=== PATIENT | male | born 1970 | race Caucasian/White ===

== ENCOUNTER 2020-09-16 23:16 | Observation (INO) | payer OTHER, SELFPAY ==
[2020-09-16 23:32] VITALS: BP 191/110; PULSE 71; RESP 22; TEMP 36.9; O2SAT 98; BMI 58.4
[2020-09-17] VITALS (16 sets, daily range): BP systolic 131–216; BP diastolic 88–118; PULSE 67–112; RESP 11–18; TEMP 36.7–37.3; O2SAT 94–98
--- NOTE | 2020-09-17 00:35 | CTR_ITS ---
PROCEDURE INFORMATION: Exam: CT Abdomen And Pelvis With Contrast Exam date and time: 09/17/2020 12:39 AM Age: 50 years old Clinical indication: Abdominal pain; Localized; Right; Patient HX: RT sided abd pain. History of diverticulitis. ; Additional info: Pain, HX of diverticulitis, symptoms more consistent with TECHNIQUE: Imaging protocol: Computed tomography of the abdomen and pelvis with contrast. Radiation optimization: All CT scans at this facility use at least one of these dose optimization techniques: automated exposure control; mA and/or kV adjustment per patient size (includes targeted exams where dose is matched to clinical indication); or iterative reconstruction. Contrast material: OMNI 300; Contrast volume: 95 ml; Contrast route: INTRAVENOUS (IV); COMPARISON: CT abdomen pelvis w con* [id number] 10/07/2015 12:58 PM RADIATION DOSE METRICS: Total DLP (mGy-cm): 1804.42 FINDINGS: Liver: Normal. No mass. Gallbladder and bile ducts: There is a distended gallbladder with wall thickening and stranding of the surrounding fat, in association with fat density calculi in the gallbladder neck, consistent with acute cholecystitis. Sludge is seen within the gallbladder. Pancreas: Normal. No ductal dilation. Spleen: Normal. No splenomegaly. Adrenal glands: Normal. No mass. Kidneys and ureters: Symmetric enhancement of the kidneys. There is 2 new incompletely characterized hypodense masses in the right kidney, measuring 1.8 cm and 1.7 cm. Unchanged 1.0 cm hypodense focus in the left upper kidney, which may represent a cyst. No hydronephrosis or nephrolithiasis. Stomach and bowel: There is diverticulosis without evidence of diverticulitis. Appendix: No evidence of appendicitis. Intraperitoneal space: Unremarkable. No free air. No significant fluid collection. Vasculature: Mild diffuse atherosclerotic disease is present. Lymph nodes: Unremarkable. No enlarged lymph nodes. Urinary bladder: Unremarkable as visualized. Reproductive: Unremarkable as visualized. Bones/joints: Mild levocurvature of the lumbar spine and multilevel degenerative changes seen. Degenerative changes of the spine seen. Soft tissues: Unremarkable. Other findings: Tiny calcified granulomas are seen in both lower lobes. . CT/CT abdomen pelvis w con* [id number] IMPRESSION: Imaging findings of acute calculus cholecystitis. COMMENTS: Consistent with the [employer]'s Incidental Findings Committee white paper (J Am Ruben Radiol 2018): Any incidental renal lesion less than 1 cm or classified as too small to characterize, or any incidental cystic renal lesion characterized as simple-appearing, is likely benign. No follow-up imaging is recommended for these lesions per consensus recommendations based on imaging criteria. Radiation Dose CTDIVOL = (mGy): DLP = 1804.42 (mGy-cm)
[2020-09-17 00:42] LABS: Basophils # 0.1 10^3/uL (0.0-0.1); Basophils % 0.4 %; Eosinophils % 0.1 %; Hematocrit 49.1 % (42.0-52.0); Hemoglobin 17.1 g/dL (11.7-16.6); Lymphocytes # 1.2 10^3/uL (0.8-4.8); Lymphocytes % 9.9 %; Mean Corpuscular HGB Conc 34.8 g/dL (30.0-36.0); Mean Corpuscular Hemoglobin 30.9 pg (28.0-34.0); Mean Corpuscular Volume 88.8 fL (80-94); Mean Platelet Volume 9.5 fL (7.4-10.4); Monocytes # 0.6 10^3/uL (0.2-0.9); Neutrophils # 10.36 10^3/uL (1.8-7.7); Neutrophils % 84.2 %; Nucleated Red Blood Cells % 0 %; Platelet Count 210 10^3/cmm (130-400); Red Blood Count 5.53 10^6/uL (4.1-5.3); Red Cell Distribution Width 12.9 % (12.1-15.1); White Blood Count 12.3 10^3/uL (4.0-10.0)
--- NOTE | 2020-09-17 00:43 | ED_ITS ---
HPI - Abdominal Pain General: Chief Complaint: Abdominal Pain Stated Complaint: R Lower side pain Time Seen by Provider: 09/17/20 00:21 Source: patient History of Present Illness: HPI narrative: Patient is a 50-year-old male seen for right-sided abdominal pain. He states that the pain started yesterday has been getting worse ever since. The pain came on suddenly. He describes it as 9 of 10, sharp, constant, not necessarily worse with motion or palpation, however he states this is how it felt the last 4 times he had diverticulitis. He states that he took a single dose of oral antibiotics prior to arrival in the emergency department as he suspected this was diverticulitis again. He states that the pain typically starts on the right side and then crosses over his abdomen to the left side. He admits nausea but no vomiting. He denies fever, dysuria, frequency, hematuria, diarrhea, constipation, and has no other acute complaints. He did not take his lisinopril today, contributing to his hypertension. Review of Systems General: Reports: 10 or more systems reviewed and unremarkable except in HPI and below PFSH ED PFSH: Medical History Dyspnea on exertion Hypercholesterolemia Hypertension Obstructive sleep apnea Surgical History H/O colonoscopy Family History Other Cancer Hypertension Stroke Social History Smoking and tobacco status: current every day smoker smokeless tobacco Alcohol intake: current Alcohol intake frequency: holidays/special occasions only Substance/Drug Use: never Household members: spouse Housing: House Physical Exam Const: COMMON NORMALS: no acute distress, patient oriented x3 and alert HENMT: COMMON NORMALS: normocephalic and atraumatic HEAD & SCALP: normocephalic and atraumatic Eye: COMMON NORMALS: Equal, round and reactive pupils present, EOMs intact bilaterally and no scleral icterus PUPIL: Yes Equal, round and reactive pupils present Resp: COMMON NORMALS: normal respiratory effort and No retractions Cardio: COMMON NORMALS: regular rate, regular rhythm and No murmurs present (Cardio) RATE: regular rate RHYTHM: regular rhythm GI: COMMON NORMALS: Soft to palpation, non-tender, no masses and no bruits INSPECTION: No abdominal wall ecchymosis AUSCULTATION: Yes normoactive bowel sounds PALPATION: Yes Soft to palpation PERCUSSION: normal to percussion OTHER: Abdomen is soft and nonperitoneal and protuberant. I am not able to elicit increased pain with deep palpation of the abdominal wall. Neuro: COMMON NORMALS: patient oriented x3 SENSORIUM/ORIENTATION: Yes alert Skin: COMMON NORMALS: no rashes or lesions noted GENERAL SKIN EXAM: no rashes or lesions noted Course Vital Signs: Vital signs: Vital Signs Temperature 98.5 F 09/16/20 23:32 Pulse Rate 84 09/17/20 03:03 Respiratory Rate 17 09/17/20 03:03 Blood Pressure 157/102 09/17/20 03:03 Pulse Oximetry 97 09/17/20 03:03 MDM - Abdominal Pain MDM Narrative: Medical decision making narrative: Patient remained hemodynamically stable throughout ED course. Pain was well controlled with Dilaudid and nausea was controlled with Zofran. CT was concerning for possible acute cholecystitis and ultrasound of the right upper quadrant confirms the diagnosis. I spoke with general surgery who advises antibiotics and admission to the hospital service for surgical consultation. Patient agrees to the plan will be taken upstairs in stable and improved condition. Lab Data: Labs: Lab Results 09/17/20 09/17/20 09/17/20 Range/Units 00:24 00:24 00:24 WBC 12.3 H (4.0-10.0) 10^3/ uL RBC 5.53 H (4.1-5.3) 10^6/u L Hgb 17.1 H (11.7-16.6) g/dL Hct 49.1 (42.0-52.0) % MCV 88.8 (80-94) fL MCH 30.9 (28.0-34.0) pg MCHC 34.8 (30.0-36.0) g/dL RDW 12.9 (12.1-15.1) % Plt Count 210 (130-400) 10^3/c mm MPV 9.5 (7.4-10.4) fL Neut % (Auto) 84.2 % Lymph % (Auto) 9.9 % [place] % (Auto) 5.0 % Eos % (Auto) 0.1 % Baso % (Auto) 0.4 % Neut # (Auto) 10.36 H (1.8-7.7) 10^3/u L Lymph # (Auto) 1.2 (0.8-4.8) 10^3/u L [place] # (Auto) 0.6 (0.2-0.9) 10^3/u L Eos # (Auto) 0.0 (0.0-0.8) 10^3/u L Baso # (Auto) 0.1 (0.0-0.1) 10^3/u L Nucleated RBC % (a uto) 0 % Nucleated RBCs # 0.0 /100WBC ESR 23 H (0-10) mm/hr Sodium 131 L (136-145) mmol/L Potassium 4.3 (3.5-5.1) mmol/L Chloride 96 L (98-107) mmol/L Carbon Dioxide 25 (22-29) mmol/L Anion Gap 14.3 (5-19) BUN 11 (6-20) mg/dL Creatinine 0.9 (0.7-1.2) mg/dL GFR Calculation 89.0 L (90-130) mL/min Glucose 145 H (65-115) mg/dL Calculated Osmolal ity 274 L (285-295) mOsm/k g Calcium 8.5 (8.5-10.5) mg/dL Total Bilirubin 1.3 H (0.15-1.2) mg/dL AST 23 (0-40) U/L ALT 36 (0-41) U/L Alkaline Phosphata se 91 (40-130) IU/L C-Reactive Protein 51.7 H (0.0-4.9) mg/L Total Protein 7.3 (6.6-8.7) g/dL Albumin 4.1 (3.5-5.2) g/dL Globulin 3.2 (1.3-4.6) g/dL Lipase 33 (13-60) U/L Imaging Data ^: Other Imaging: Radiologist's impression: FINDINGS: Liver: Liver is diffusely increased in echogenicity, most commonly seen in hepatic steatosis, though other forms of parenchymal liver disease could have a similar appearance. This limits evaluation for subtle isoechoic masses but no masses are seen. Gallbladder: Distended gallbladder containing gallstones, in association with wall thickening and trace pericholecystic fluid. Positive sonographic Worley's sign. Common bile duct: Normal. No stones. No dilation. Pancreas: Visualized pancreas is unremarkable. Right kidney: Normal. No mass. No hydronephrosis. Aorta: Unremarkable. CT Abd/Pel: Radiologist's impression: IMPRESSION: 1. Imaging findings of acute calculus cholecystitis. 2. New incompletely characterized right renal lesions. Further evaluation with contrast enhanced abdomen MRI in a non emergent basis is recommended. Discharge Plan Discharge Admit Provider: Joselito Childress Coding Level of Care Code ED Precision Lens Polisher for Chg Fwd Exam Detailed
[2020-09-17 00:53] LABS: Alanine Aminotransferase 36 U/L (0-41); Albumin Level 4.1 g/dL (3.5-5.2); Alkaline Phosphatase 91 IU/L (40-130); Anion Gap 14.3 (5-19); Aspartate Amino Transferase 23 U/L (0-40); Blood Urea Nitrogen 11 mg/dL (6-20); C Reactive Protein 51.7 mg/L (0.0-4.9); Calcium 8.5 mg/dL (8.5-10.5); Carbon Dioxide 25 mmol/L (22-29); Chloride 96 mmol/L (98-107); Globulin 3.2 g/dL (1.3-4.6); Glucose 145 mg/dL (65-115); Lipase 33 U/L (13-60); Osmolality Calculated 274 mOsm/kg (285-295); Potassium 4.3 mmol/L (3.5-5.1); Sodium 131 mmol/L (136-145); Total Bilirubin 1.3 mg/dL (0.15-1.2); Total Protein 7.3 g/dL (6.6-8.7)
[2020-09-17] MEDS: HYDROmorphone 1 mg/mL INJ 1 mL IVP ×5 (00:59→20:11)
[2020-09-17] MEDS: ondansetron 2 mg/ML SDV 2 mL 4 MG IVP ×2 (01:01→17:34)
[2020-09-17 01:21] LABS: Erythrocyte Sedimentation Rate 23 mm/hr (0-10)
[2020-09-17] MEDS: iohexol 300 mg/mL 100 mL Btl IV (01:21)
--- NOTE | 2020-09-17 02:36 | USR_ITS ---
PROCEDURE INFORMATION: Exam: US Abdomen, Limited; Right Upper Quadrant Exam date and time: 09/17/2020 2:37 AM Age: 50 years old Clinical indication: Abdominal pain; Acute; TECHNIQUE: Imaging protocol: US abdomen. Real time ultrasound with image documentation. Limited exam focused on the right upper quadrant. COMPARISON: CT abdomen pelvis w con* [id number] 09/17/2020 1:18 AM FINDINGS: Liver: Liver is diffusely increased in echogenicity, most commonly seen in hepatic steatosis, though other forms of parenchymal liver disease could have a similar appearance. This limits evaluation for subtle isoechoic masses but no masses are seen. Gallbladder: Distended gallbladder containing gallstones, in association with wall thickening and trace pericholecystic fluid. Positive sonographic Worley's sign. Common bile duct: Normal. No stones. No dilation. Pancreas: Visualized pancreas is unremarkable. Right kidney: Normal. No mass. No hydronephrosis. Aorta: Unremarkable. US/US gall bladder [id number] IMPRESSION: 1. Imaging findings of acute calculus cholecystitis. 2. Hyperechoic liver, which can be seen with fatty infiltration or hepatocellular disease.
--- NOTE | 2020-09-17 02:58 | P.HP_ITS ---
Providers/Chief Complaint Primary Care Provider: Cameron Campbell MD Chief Complaint: R Lower side pain History of Present Illness Lee Crawford is a 50 year old male who does not have significant past medical history presented today with chief complaint of abdominal pain and dry heaves. Patient is stating that his symptoms started on Tuesday after he ate a leftover hotdog from the [employer] over the weekend. His symptoms started with abdominal pain nausea and vomiting followed by dry heaves, his pain has been worsening over last 48 hours which prompted him to come to the hospital for evaluation. Temperature at home 99.9 Fahrenheit. 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 No cough, chest pain, shortness of breath, change in bowel movement or dysuria. Diagnostics in the ER revealed mild leukocytosis, acute cholecystitis with gallstone at the neck of the bladder however no obstruction, alkaline phosphatase normal, no change in liver enzymes, ESR 23 CRP 51, lipase normal, ultrasound consistent with acute calculus cholecystitis Review of Systems Const: Reports: fever(s) and chills Eyes: Denies: change in vision ENMT: Denies: throat pain Card: Denies: chest pain Resp: Denies: dyspnea GI: Reports: abdominal pain, nausea and vomiting : Denies: flank pain Musc: Denies: neck pain Skin/Breast: Denies: rash Neuro: Denies: headache(s) Psych: Denies: anxiety Endo: Denies: polyuria Yahir/Lymph: Denies: easy bruising All/Imm: Denies: urticaria Medications/Allergies Home Medications Medication Instructions Recorded Confirmed Last Taken Type lisinopril 20 mg tablet 20 mg PO DAILY 03/24/20 03/24/20 Unknown History Allergies Allergy/AdvReac Type Severity Reaction Status Date / Time acetaminophen [From Percocet] Allergy Unknown Unknown Verified 03/24/20 09:23 oxycodone [From Percocet] Allergy Unknown Unknown Verified 03/24/20 09:23 propoxyphene Allergy Unknown Unknown Verified 03/24/20 09:23 [From Darvocet-N] tramadol Allergy Unknown Unknown Verified 03/24/20 09:23 PFSH Acute PFSH: Medical History Dyspnea on exertion Hypercholesterolemia Hypertension Obstructive sleep apnea Surgical History (Updated 09/17/20 @ 03:43 by Joselito Childress MD) H/O colonoscopy Removal of 6 precancerous polyps Family History Other Cancer Hypertension Stroke Social History Smoking and tobacco status: current every day smoker smokeless tobacco Alcohol intake: current Alcohol intake frequency: holidays/special occasions only Substance/Drug Use: never Household members: spouse Housing: House Vitals/I&O/Wt Last Vital Signs Temp 98.5 F 09/16/20 23:32 Pulse 67 09/17/20 02:00 Resp 17 09/17/20 02:00 BP 172/91 09/17/20 02:00 Pulse Ox 94 09/17/20 02:00 Weight last 48 hrs Weight 164.2 kg Physical Exam Narrative: EXAM NARRATIVE: Middle-age male, morbidly obese Worsening comfortably in his bed Worley's sign positive Abdomen central obesity, no guarding or rigidity no signs of peritonitis S1, S2 no murmur or signs of heart failure No audible stridor or wheezing EOMI, PERRLA No neurological deficit Awake alert oriented x3 GCS 15 Appropriate mood and affect Cooperative and pleasant during my evaluation Data : 09/17/20 00:24 09/17/20 00:24 A&P Assessment and plan (1) Acute cholecystitis: Status: Acute Additional A&P Information Acute calculus cholecystitis No choledocholithiasis Normal liver enzymes and alkaline phosphatase High white count however no sepsis We will keep him n.p.o., start him on Zosyn, hold lisinopril in case he goes for intervention in the morning considering acute calculus cholecystitis, general surgery consulted Dilaudid for analgesia Essential hypertension I would use amlodipine and hold lisinopril for now DVT prophylaxis SCDs in case he goes for intervention in the morning N.p.o. Full code Attestations Medical Necessity Statement*: Anticipating stay in the hospital cross more than 2 midnights for management of acute cholecystitis Time Spent in Patient Care: (>than 50% of time spent in counselling and/or direct pt care on unit) . 40mins Coding Level of Care Code Acute Woven Paper Hat Mender for George Fwd Diagnoses Acute cholecystitis K81.0
[2020-09-17] MEDS: piperacillin-tazobactam 3.375 GM in sodium chloride 0.9% (plus) 50 ML IV ×3 (03:24→17:27)
[2020-09-17 04:20] LABS: Basophils % 0.2 %; Eosinophils % 0.1 %; Hemoglobin 16.9 g/dL (11.7-16.6); Lymphocytes % 8.3 %; Mean Corpuscular HGB Conc 33.8 g/dL (30.0-36.0); Mean Corpuscular Hemoglobin 31.1 pg (28.0-34.0); Mean Corpuscular Volume 91.9 fL (80-94); Mean Platelet Volume 9.6 fL (7.4-10.4); Monocytes # 0.7 10^3/uL (0.2-0.9); Monocytes % 5.8 %; Neutrophils # 10.48 10^3/uL (1.8-7.7); Neutrophils % 85.3 %; Nucleated Red Blood Cells % 0 %; Platelet Count 192 10^3/cmm (130-400); Red Blood Count 5.44 10^6/uL (4.1-5.3); White Blood Count 12.3 10^3/uL (4.0-10.0)
[2020-09-17 04:24] LABS: SARS Covid-2 Antigen Negative (Negative)
[2020-09-17 04:33] LABS: Alanine Aminotransferase 32 U/L (0-41); Albumin Level 3.7 g/dL (3.5-5.2); Alkaline Phosphatase 86 IU/L (40-130); Anion Gap 14.9 (5-19); Aspartate Amino Transferase 20 U/L (0-40); Blood Urea Nitrogen 11 mg/dL (6-20); Calcium 8.2 mg/dL (8.5-10.5); Carbon Dioxide 22 mmol/L (22-29); Chloride 97 mmol/L (98-107); Globulin 3.4 g/dL (1.3-4.6); Glomerular Filtration Rate 118.9 mL/min (90-130); Glucose 155 mg/dL (65-115); Osmolality Calculated 273 mOsm/kg (285-295); Potassium 3.9 mmol/L (3.5-5.1); Sodium 130 mmol/L (136-145); Total Bilirubin 1.4 mg/dL (0.15-1.2); Total Protein 7.1 g/dL (6.6-8.7)
--- NOTE | 2020-09-17 06:46 | PM.CONSULT ---
Providers/Reason For Consult Consulting Physican/Specialty*: Xavier Mayorga MD Reason for Consult*: Acute cholecystitis Requesting Physcian: Dr. Millard Attending Physician: Joselito Childress MD Primary Care Provider: Cameron Campbell MD History of Present Illness History of Present Illness Chief Complaint: My side hurts History of present illness: Lee Crawford is a 50 year old male morbidly obese with a current weight 362 pounds and a BMI 58.4 class III obesity. 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 Presents to the emergency department with worsening abdominal pain following a barbecue last Tuesday, pain started on the right side and got worse associated with nausea and vomiting and patient was further evaluated emergency department was found to have leukocytosis of 12.3 and normal LFTs except for slight elevation of total bilirubin 1.3. Patient never had episodes of gallbladder problems before. Patient undergone imaging studies and showed CT scan of the abdomen and pelvis Liver: Normal. No mass. Gallbladder and bile ducts: There is a distended gallbladder with wall thickening and stranding of the surrounding fat, in association with fat density calculi in the gallbladder neck, consistent with acute cholecystitis. Sludge is seen within the gallbladder. Followed by an ultrasound of the liver and gallbladder that showed Liver: Liver is diffusely increased in echogenicity, most commonly seen in hepatic steatosis, though other forms of parenchymal liver disease could have a similar appearance. This limits evaluation for subtle isoechoic masses but no masses are seen. Gallbladder: Distended gallbladder containing gallstones, in association with wall thickening and trace pericholecystic fluid. Positive sonographic Worley's sign. Common bile duct: Normal. No stones. No dilation. Pancreas: Visualized pancreas is unremarkable. Right kidney: Normal. No mass. No hydronephrosis. Aorta: Unremarkable. US/US gall bladder [id number] IMPRESSION: 1. Imaging findings of acute calculus cholecystitis. 2. Hyperechoic liver, which can be seen with fatty infiltration or hepatocellular disease. General surgery was consulted for further evaluation and potential management Review of Systems General: Reports: 10 or more systems reviewed and unremarkable except in HPI and below Meds/Allergies Home Medications and Allergies Home Medications Medication Instructions Recorded Confirmed Last Taken Type lisinopril 20 mg tablet 20 mg PO DAILY 11/09/17/20 09/13/20 08:00 History Allergies Allergy/AdvReac Type Severity Reaction Status Date / Time acetaminophen [From Percocet] Allergy Unknown Unknown Verified 09/17/20 06:47 oxycodone [From Percocet] Allergy Unknown Unknown Verified 09/17/20 06:47 propoxyphene Allergy Unknown Unknown Verified 09/17/20 06:47 [From Darvocet-N] tramadol Allergy Unknown Unknown Verified 09/17/20 06:47 PFSH Acute PFSH: Medical History (Updated 09/17/20 @ 10:58 by Ike Greco MD) Dyspnea on exertion Hypercholesterolemia Hypertension Obstructive sleep apnea Surgical History (Updated 09/17/20 @ 03:43 by Joselito Childress MD) H/O colonoscopy Removal of 6 precancerous polyps Family History Other Cancer Hypertension Stroke Social History Smoking and tobacco status: current every day smoker smokeless tobacco Alcohol intake: current Alcohol intake frequency: holidays/special occasions only Substance/Drug Use: never Household members: spouse Housing: House Vitals/I&O/Wt Last Vital Signs Temp 98.5 F 09/17/20 06:27 Pulse 98 09/17/20 06:27 Resp 16 09/17/20 06:27 BP 132/99 09/17/20 06:27 Pulse Ox 98 09/17/20 06:27 09/16/20 09/16/20 09/17/20 14:59 22:59 06:59 Intake Total 50 / 50 Balance 50 / 50 Weight last 48 hrs Weight 362 lb Physical Exam Const: COMMON NORMALS: no acute distress and patient oriented x3 GENERAL APPEARANCE: cooperative NUTRITIONAL APPEARANCE: obese morbidly obese (BMI 58.4) ORIENTATION/CONSCIOUSNESS: Yes awake, Yes oriented to person, Yes oriented to place and Yes oriented to time HENMT: COMMON NORMALS: normocephalic HEAD & SCALP: normocephalic Eye: COMMON NORMALS: Equal, round and reactive pupils present and no scleral icterus PUPIL: Yes Equal, round and reactive pupils present Lymph: LYMPHATIC: no lymphadenopathy noted Chest: COMMONS NORMALS: normal inspection of the chest Resp: COMMON NORMALS: normal respiratory effort and clear to auscultation bilaterally AUSCULTATION: clear to auscultation bilaterally Cardio: COMMON NORMALS: S1 normal heart sound present and S2 normal heart sound present; negative for No murmurs present (Cardio) HEART SOUNDS: S1 normal heart sound present and S2 normal heart sound present GI: COMMON NORMALS: Soft to palpation; negative for No hepatosplenomegaly present INSPECTION: Yes normal to inspection PALPATION: Yes Soft to palpation, No Firmness to palpation present (GI), Yes Tenderness to palpation present (GI) Details: RUQ, No Guarding due to palpation present (GI), No Rigid due to palpation and No No hepatosplenomegaly present Neuro: COMMON NORMALS: patient oriented x3 SENSORIUM/ORIENTATION: Yes oriented to person, Yes oriented to place and Yes oriented to time Psych: COMMON NORMALS: mental status grossly normal Skin: COMMON NORMALS: no rashes or lesions noted GENERAL SKIN EXAM: no rashes or lesions noted A&P Assessment and plan (1) Acute cholecystitis: After thorough history physical examination and reviewing the chart and images with my presented potation of the CT scan and ultrasound findings. I did discuss with the patient about potential options; 1-laparoscopic cholecystectomy possible open understanding the higher chance of conversion to open giving the fact that the patient has morbid obesity status with hepatomegaly due to fatty liver in addition to the high risk of bleeding and biliary injuries with current BMI. That the enlarged liver can make visualization challenging and thus conversion to open will be higher and subsequently postoperative pain, higher chance of surgical site infection and hernias with an open procedure in his case. Versus 2-IV antimicrobial therapy with IV fluid resuscitation with serial physical examination Certainly patient would benefit from obesity management and elective laparoscopic cholecystectomy if he were to agree on that with placement of the patient on liquid protein diet for 2 weeks prior to surgery to downsize the volume of the liver to maximize his safety. Thank you for consulting general surgery to participate taking care Status: Acute Consult Attestations Medical Necessity Statement: Patient will require inpatient hospitalization for medical and surgical care Time Spent in Patient Care: (>than 50% of time spent in counselling and/or direct pt care on unit). Coding Level of Care Code Acute Photo Machine Operator for g Fwd Exam Comprehensive Diagnoses Acute cholecystitis K81.0
[2020-09-17 06:59] LABS: Add Urine Microscopic? YES; Bacteria Urine 2+ /hpf; Bilirubin Urine Neg (Negative); Blood Urine Neg (Negative); Glucose Urine UA Norm (Normal); Ketones Urine 1+ (Negative); Leukocyte Esterase Urine Negative (Negative); Nitrate Urine Negative (Negative); Protein Urine Trace (Negative); Specific Gravity, Urine 1.015 (1.005-1.030); Squamous Epithelial Cell Urine 0-4 /hpf (0-5); Urine Appearance Turbid (CLEAR); Urine Color Yellow (Yellow); Urobilinogen Urine Norm (Negative); pH Urine 5 (5-7)
[2020-09-17 07:00] LABS: Add Urine Culture? No; Amorphous Sediment Urine 3+ /hpf
[2020-09-17] MEDS: dextrose 5%-sod chloride 0.45% 1,000 ML 30 ML IV (07:42)
[2020-09-17] MEDS: enoxaparin 30 mg/0.3 mL Syringe SUBCUT ×2 (07:42→21:22)
[2020-09-17] MEDS: HYDROmorphone 1 mg/mL INJ 1 mL 0.4 MG IVP (07:42)
--- NOTE | 2020-09-17 09:27 | PC.NURSE ---
call placed to Dr. Bolaños to clarify diet orders patient has 2 orders ok to proceed with ice chips meds and Popsicle at this time
--- NOTE | 2020-09-17 09:35 | PC.CHAP ---
Pastoral Care Encounter/Spiritual Assessment Type of Contact [] Declined cardroom drawing runner visit [] Patient/Family/Request visit [] Outpatient visit [] Follow-up visit [] Physician referral [] Code/Alert [x] Routine visit [] Staff referral [] Actively dying [x] Patient sleeping [x] Family support [] [] Out of room [] Palliative care [] [] Receiving care in room [] Pre-surgical visit [] Trauma [] Long length of stay [] ICU visit [] Other: Relational/Emotional Strength [] Patient feels connected with others/family/visitors/staff [] Distress [] Loneliness/isolation [] Abandonment Spirituality of Patient [] Person of [place] [] Attends Pentecostalism of their [place] [] Believes in Prayer [] Reads Bible or Church materials [] There are Spiritual issues to be addressed Oenologist Interventions [x] Prayer [] Active listening [] Non-anxious presence [] Spiritual/emotional support [] Crisis/trauma care [] Spiritual counseling [] Bereavement support [] Provided bereavement packet [] Provided Bible/devotional materials [] Provided toy/stuffed animal, coloring book to patient or family member [] Provided Communion [] Anointing/[place] [] Salvation [x] Completed spiritual assessment [] Other: Impact on Illness or Injury [] Angry [] Fearful [] Anxious [] Often cries [] Exhaustion [] Unable to work [] Unable to attend holiness [] Unable to walk/stand [] Unable to read [] Unable to drive [] Unable to eat/drink [] Unable to sleep [] Unable to be with family [] Patient intubated [] Other: Summary Time spent with patient
[2020-09-17] MEDS: amlodipine 10 mg Tablet PO (10:05)
--- NOTE | 2020-09-17 10:36 | PC.NURSE ---
patient medsurg over flow MD prabhakar to move to Medsurg unit when bed is available
--- NOTE | 2020-09-17 10:57 | P.PN_ITS ---
Subjective Subjective: Interval history: History and physical was reviewed. Patient reports he has some right upper quadrant pain this morning and has been slightly nauseated. He is needing more pain medication. Medications: Reviewed: Yes Vitals/I&O/Wt Last Vital Signs Temp 98.0 F 09/17/20 10:55 Pulse 108 H 09/17/20 10:55 Resp 15 09/17/20 10:55 BP 151/102 09/17/20 10:55 Pulse Ox 94 09/17/20 10:55 09/16/20 09/17/20 09/17/20 22:59 06:59 14:59 Intake Total 50 / 50 Balance 50 / 50 Weight last 48 hrs Weight 164.2 kg Physical Exam Narrative: EXAM NARRATIVE: General exam some pain, right upper quadrant Neck is supple no lymphadenopathy or thyromegaly Cardiovascular tachycardic, regular, no murmur Lungs clear Abdomen is obese. Tenderness mainly on the right side. Positive bowel sounds Extremities no cyanosis clubbing or edema. Data : 09/17/20 04:12 09/17/20 04:12 A&P Assessment and plan (1) Acute cholecystitis: Placed on Zosyn Surgery consultation. Currently treatment is proceeding with antibiotics alone, with possible outpatient management depending upon clinical course Repeat CMP tomorrow Surgical consultation appreciated. Pain control with hydromorphone, nausea control with Zofran Status: Acute (2) Hypertension: Lisinopril changed to Norvasc. Will monitor results. Status: Acute (3) Morbid obesity: Encourage weight loss. Patient is interested in this as well. Status: Acute Additional A&P Information Hyperglycemia. Check hemoglobin A1c. Change IV fluids to normal saline at 75 cc an hour. Check TSH as well. Full code Lovenox for DVT prophylaxis Attestations Medical Necessity Statement*: Needs continued hospital stay for IV antibiotics related to acute cholecystitis. Coding Level of Care Code Acute Adjunct Trainer for [facility] Diagnoses Acute cholecystitis K81.0 Hypertension I10 Morbid obesity E66.01
[2020-09-17 13:03] LABS: Thyroid Stimulating Hormone 2.16 uIU/mL (0.27-4.20)
[2020-09-17 13:15] LABS: Estmated Average Glucose 103; Hemoglobin A1C 5.2 % (4.0-6.0)
[2020-09-17] MEDS: sodium chloride 0.9% 1,000 ML 75 ML IV (17:28)
[2020-09-18] VITALS (8 sets, daily range): BP systolic 114–149; BP diastolic 72–97; PULSE 80–108; RESP 16–18; TEMP 36.7–37.4; O2SAT 94–98
[2020-09-18] MEDS: HYDROmorphone 1 mg/mL INJ 1 mL IVP ×2 (01:15→17:20)
[2020-09-18] MEDS: piperacillin-tazobactam 3.375 GM in sodium chloride 0.9% (plus) 50 ML IV ×3 (02:03→17:22)
--- NOTE | 2020-09-18 06:03 | P.PN_ITS ---
Subjective Subjective: Interval history: Patient overall feels better yet he continues to have right-sided pain located mostly on the right lower and right mid side, patient reports to me whenever he had diverticulitis he has the same pain on the right side and radiates across his abdomen. Also patient reports that he had felt before and hurt his right shoulder and right side and he has been having pain at that side also Medications: Reviewed: Yes Vitals/I&O/Wt Last Vital Signs Temp 98.1 F 09/18/20 03:19 Pulse 84 09/18/20 03:19 Resp 18 09/18/20 03:19 BP 149/82 09/18/20 03:19 Pulse Ox 95 09/18/20 03:19 09/17/20 09/17/20 09/18/20 14:59 22:59 06:59 Intake Total 480 / 480 440 / 920 Output Total 400 / 400 Balance 480 / 480 440 / 920 -400 / 520 Weight last 48 hrs Weight 362 lb Physical Exam Narrative: EXAM NARRATIVE: Patient is conscious alert oriented X3 BMI 58.4 Head and neck examination PERRLA no masses no cervical lymphadenopathy no jaundice Abdomen nontender except more towards the right lumbar region nondistended soft no organomegaly guarding or rigidity/no signs of peritonitis Extremities no cyanosis no clubbing no edema Data : 09/19/20 04:52 09/19/20 04:52 A&P Assessment and plan (1) Acute cholecystitis: We will continue IV antibiotic for now, I did review the CT scan images again and perhaps the pain is referred from the cholecystitis. As I do not see any evidence of right-sided colon diverticulitis at this point, I will review the images with our radiologist to close the loop on that. Continue clear liquid diet We will start the patient on muscle relaxant Flexeril 10 mg p.o. 3 times daily as needed We will continue to follow the patient clinically Labs are still pending Thank you for consulting general surgery to participate taking care Status: Acute Attestations Medical Necessity Statement*: Patient requires continued hospitalization for parenteral antimicrobial therapy and repeated physical examination Time Spent in Patient Care: 16 - 35 minutes (>than 50% of time spent in counselling and/or direct pt care on unit) . Coding Level of Care Code Acute Box Toe Cementer for [facility] Diagnoses Acute cholecystitis K81.0
[2020-09-18] MEDS: sodium chloride 0.9% 1,000 ML 75 ML IV ×2 (06:44→18:48)
[2020-09-18] MEDS: enoxaparin 30 mg/0.3 mL Syringe SUBCUT ×2 (08:47→19:59)
--- NOTE | 2020-09-18 10:35 | PC.CHAP ---
Pastoral Care Encounter/Spiritual Assessment Type of Contact [] Declined hvac commercial salesperson visit [] Patient/Family/Request visit [] Outpatient visit [] Follow-up visit [] Physician referral [] Code/Alert [x] Routine visit [] Staff referral [] Actively dying [] Patient sleeping [] Family support [] [] Out of room [] Palliative care [] [x] Receiving care in room [] Pre-surgical visit [] Trauma [x] Long length of stay [] ICU visit [] Other: Relational/Emotional Strength [x] Patient feels connected with others/family/visitors/staff [x] Distress [] Loneliness/isolation [] Abandonment Spirituality of Patient [x] Person of Ligia [] Attends Anabaptist of their [place] [x] Believes in Prayer [] Reads Bible or Cheondoism materials [] There are Spiritual issues to be addressed Wall Attendant Interventions [x] Prayer [x] Active listening [x] Non-anxious presence [x] Spiritual/emotional support [] Crisis/trauma care [x] Spiritual counseling [] Bereavement support [] Provided bereavement packet [] Provided Bible/devotional materials [] Provided toy/stuffed animal, coloring book to patient or family member [] Provided Communion [] Anointing/[place] [] Salvation [x] Completed spiritual assessment [] Other: Impact on Illness or Injury [] Angry [x] Fearful [] Anxious [] Often cries [] Exhaustion [] Unable to work [] Unable to attend jainism [] Unable to walk/stand [] Unable to read [] Unable to drive [] Unable to eat/drink [] Unable to sleep [] Unable to be with family [] Patient intubated [] Other: Summary Has enlarged lever and other medical problems has a good attitude, waiting for doctor;s report on what can be done, wants to go home at some point, Time spent with patient 10 mins
[2020-09-18 11:16] LABS: Basophils # 0.1 10^3/uL (0.0-0.1); Basophils % 0.4 %; Eosinophils # 0.3 10^3/uL (0.0-0.8); Eosinophils % 2.6 %; Hematocrit 46.1 % (42.0-52.0); Hemoglobin 15.6 g/dL (11.7-16.6); Lymphocytes # 1.5 10^3/uL (0.8-4.8); Lymphocytes % 12.8 %; Mean Corpuscular HGB Conc 33.8 g/dL (30.0-36.0); Mean Corpuscular Hemoglobin 31.3 pg (28.0-34.0); Mean Corpuscular Volume 92.6 fL (80-94); Mean Platelet Volume 9.7 fL (7.4-10.4); Monocytes # 0.7 10^3/uL (0.2-0.9); Monocytes % 6.1 %; Neutrophils % 77.8 %; Nucleated Red Blood Cells % 0 %; Platelet Count 186 10^3/cmm (130-400); Red Blood Count 4.98 10^6/uL (4.1-5.3); Red Cell Distribution Width 13.2 % (12.1-15.1); White Blood Count 11.6 10^3/uL (4.0-10.0)
[2020-09-18 11:38] LABS: Alanine Aminotransferase 22 U/L (0-41); Albumin Level 2.8 g/dL (3.5-5.2); Alkaline Phosphatase 78 IU/L (40-130); Aspartate Amino Transferase 16 U/L (0-40); Blood Urea Nitrogen 17 mg/dL (6-20); Calcium 7.9 mg/dL (8.5-10.5); Carbon Dioxide 21 mmol/L (22-29); Chloride 97 mmol/L (98-107); Globulin 3.5 g/dL (1.3-4.6); Glomerular Filtration Rate 101.9 mL/min (90-130); Glucose 118 mg/dL (65-115); Osmolality Calculated 271 mOsm/kg (285-295); Sodium 129 mmol/L (136-145); Total Bilirubin 1.1 mg/dL (0.15-1.2); Total Protein 6.3 g/dL (6.6-8.7)
[2020-09-18] MEDS: lisinopril 20 mg Tablet PO (11:42)
[2020-09-18] MEDS: magnesium citrate Btl 296 mL PO (11:44)
--- NOTE | 2020-09-18 11:52 | PM.PN ---
Subjective Subjective: Interval history: Lee reports his abdomen still hurts, mainly right side/flank. Feels about the same as yesterday. No vomiting. Medications: Reviewed: Yes Vitals/I&O/Wt Last Vital Signs Temp 99.3 F 09/18/20 07:12 Pulse 107 H 09/18/20 07:12 Resp 18 09/18/20 07:12 BP 134/92 09/18/20 07:12 Pulse Ox 95 09/18/20 07:12 09/17/20 09/18/20 09/18/20 22:59 06:59 14:59 Intake Total 440 / 920 1045 / 1965 Output Total 400 / 400 Balance 440 / 920 645 / 1565 Weight last 48 hrs Weight 164.2 kg Physical Exam Narrative: EXAM NARRATIVE: General exam no distress Neck is supple no lymphadenopathy or thyromegaly Cardiovascular tachycardic, regular, no murmur Lungs clear Abdomen is obese. Tenderness right upper quadrant, positive bowel sounds Extremities no cyanosis clubbing or edema. Data : 09/18/20 11:05 09/18/20 11:05 A&P Assessment and plan (1) Acute cholecystitis: Placed on Zosyn Appreciate surgical consultation. Currently treatment is proceeding with antibiotics alone, with possible outpatient management depending upon clinical course LFTs, bilirubin normal today Pain control with hydromorphone, nausea control with Zofran Hydration with saline Status: Acute (2) Hypertension: Continue patient's home medicine of lisinopril Status: Acute (3) Morbid obesity: Encourage weight loss. Patient is interested in this as well. Status: Acute Additional A&P Information Hyperglycemia. A1c, TSH normal Mild hyponatremia. Monitor. Check triglyceride level on blood in lab. Full code Lovenox for DVT prophylaxis Attestations Medical Necessity Statement*: Needs continued hospital stay for treatment of acute cholecystitis with IV antibiotics. 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
--- NOTE | 2020-09-18 11:58 | XR_ITS ---
WS: [id number] Exam: XR chest 1V portable [id number] Date/Time of Exam: 09/18/2020 12:05 PM Reason For Exam: hyponatremia No priors. Findings: The lungs are clear and fully expanded. Costophrenic angles are sharp. No infiltrates. Bronchovascula r relief appears normal. Cardiac silhouette is unremarkable. Bony elements are intact. XR/XR chest 1V portable [id number] IMPRESSION: Unremarkable chest radiograph.
[2020-09-18 12:07] LABS: Triglycerides 95 mg/dL (0-150)
[2020-09-18] MEDS: cyclobenzaprine 10 mg Tablet PO (12:53)
[2020-09-18] MEDS: oxymetazoline 0.05% Nasal Spray 15 mL 1 SPRAY NOSTRIL-B (20:03)
[2020-09-19] VITALS: BP 155/90; PULSE 57; RESP 18; TEMP 36.4; O2SAT 98
[2020-09-19] MEDS: piperacillin-tazobactam 3.375 GM in sodium chloride 0.9% (plus) 50 ML IV (00:34)
[2020-09-19 03:35] VITALS: BP 141/84; PULSE 88; RESP 18; TEMP 36.7; O2SAT 95
[2020-09-19 03:42] VITALS: RESP 18
[2020-09-19] MEDS: HYDROmorphone 1 mg/mL INJ 1 mL IVP (03:42)
[2020-09-19 05:27] LABS: Basophils # 0.1 10^3/uL (0.0-0.1); Basophils % 0.6 %; Eosinophils # 0.4 10^3/uL (0.0-0.8); Eosinophils % 5.1 %; Hematocrit 44.4 % (42.0-52.0); Hemoglobin 14.3 g/dL (11.7-16.6); Lymphocytes # 1.5 10^3/uL (0.8-4.8); Lymphocytes % 19.1 %; Mean Corpuscular HGB Conc 32.2 g/dL (30.0-36.0); Mean Corpuscular Hemoglobin 30.6 pg (28.0-34.0); Mean Corpuscular Volume 95.1 fL (80-94); Mean Platelet Volume 9.8 fL (7.4-10.4); Monocytes # 0.5 10^3/uL (0.2-0.9); Monocytes % 6.3 %; Neutrophils # 5.41 10^3/uL (1.8-7.7); Neutrophils % 68.5 %; Nucleated Red Blood Cells % 0 %; Platelet Count 189 10^3/cmm (130-400); Red Blood Count 4.67 10^6/uL (4.1-5.3); Red Cell Distribution Width 13.2 % (12.1-15.1); White Blood Count 7.9 10^3/uL (4.0-10.0)
[2020-09-19 05:54] LABS: Alanine Aminotransferase 23 U/L (0-41); Albumin Level 2.7 g/dL (3.5-5.2); Alkaline Phosphatase 78 IU/L (40-130); Anion Gap 12.7 (5-19); Aspartate Amino Transferase 20 U/L (0-40); Blood Urea Nitrogen 15 mg/dL (6-20); Calcium 7.9 mg/dL (8.5-10.5); Carbon Dioxide 24 mmol/L (22-29); Chloride 98 mmol/L (98-107); Globulin 3.2 g/dL (1.3-4.6); Glucose 88 mg/dL (65-115); Osmolality Calculated 272 mOsm/kg (285-295); Potassium 3.7 mmol/L (3.5-5.1); Sodium 131 mmol/L (136-145); Total Bilirubin 0.8 mg/dL (0.15-1.2); Total Protein 5.9 g/dL (6.6-8.7)
--- NOTE | 2020-09-19 06:42 | P.PN_ITS ---
Subjective Subjective: Interval history: Patient overall feels better and had multiple bowel movements in response to magnesium citrate and that seems to help with his discomfort Medications: Reviewed: Yes Vitals/I&O/Wt Last Vital Signs Temp 98.0 F 09/19/20 03:35 Pulse 88 09/19/20 03:35 Resp 18 09/19/20 03:42 BP 141/84 09/19/20 03:35 Pulse Ox 95 09/19/20 03:35 09/18/20 09/18/20 09/19/20 14:59 22:59 06:59 Intake Total 50 / 50 1375 / 1425 50 / 1475 Balance 50 / 50 1375 / 1425 50 / 1475 Physical Exam Narrative: EXAM NARRATIVE: Patient is conscious alert oriented X3 BMI 58.4 Head and neck examination PERRLA no masses no cervical lymphadenopathy no jaundice Abdomen less tender soft no organomegaly guarding or rigidity/no signs of peritonitis Data : 09/19/20 04:52 09/19/20 04:52 A&P Assessment and plan (1) Acute cholecystitis: I did review the images with Dr. Duong yesterday and it did show only some inflammation of the gallbladder but not remarkable. No evidence of dive rticulitis or appendicitis. Patient is responding well to bowel regimen and will advance diet as tolerated in the form of low-fat diet Patient continues to do well with that regard from surgical standpoint of view can be discharged home on oral antibiotics and follow-up with me in the office in 2 weeks Emphasis on weight management Education about low calorie and low-fat diet Thank you for consulting general surgery to participate taking care Status: Acute Attestations Medical Necessity Statement*: Patient requires continued hospitalization for parenteral antimicrobial therapy and repeated physical examination, from surgical standpoint of view patient would be an appropriate candidate for discharge today. Time Spent in Patient Care: 16 - 35 minutes (>than 50% of time spent in counselling and/or direct pt care on unit) . Coding Level of Care Code Acute Recruitment Intern for [facility] Diagnoses Acute cholecystitis K81.0
[2020-09-19 07:39] VITALS: BP 134/84; PULSE 96; RESP 16; TEMP 37; O2SAT 96
--- NOTE | 2020-09-19 08:09 | PM.DCS ---
Discharge Providers Date of Admission: 09/17/20 03:05 Date of Discharge: September 19, 2020 Attending Provider at Admission: Joselito Childress MD Attending Provider at Discharge: Ike Greco MD Primary Care Provider: Cameron Campbell MD Diagnoses at Discharge Discharge Diagnosis (1) Acute cholecystitis: Status: Acute Reason for Visit Reason for Visit: R Lower side pain Hospital Course Hospital Course Lee is a 50-year-old white male who presented to the hospital with abdominal pain, in his epigastric and right side. On evaluation with CT abdomen pelvis as well as abdominal ultrasound he was found to have acute calculus cholecystitis, with no evidence of dilated ducts. Fatty liver was also noted. 2 small lesions were noted in the right kidney as well on CT, which will require outpatient imaging for follow-up and to note stability. After admission he received Zosyn IV and a surgical consult. He was managed medically. Discomfort improved significantly and the diet was started. By September 19 it was thought he could discharge home, with follow-up with general surgery as an outpatient. Low-fat diet and weight loss was prescribed. Possible cholecystectomy in the future. He will follow-up with his primary care provider regarding the right renal lesions. Nonemergent MRI was suggested, but if possible imaging with ultrasound could first be tried. Physical Exam Narrative: EXAM NARRATIVE: General exam no apparent distress Cardiovascular regular rate and rhythm without murmur Lungs clear Abdomen is soft. Slight tenderness right upper quadrant Extremities no cyanosis clubbing or edema. Discharge Data Data Completed and Pending: Completed Studies During Hospitalization Category Date Time Status CT abdomen pelvis w con* [id number] Urge nt Cat Scan 09/17/20 00:35 Completed XR chest 1V [place] ble [id number] Routine Exams 09/18/20 11:58 Completed US gall bladder 7 [id number] Urgent Ultrasound 09/17/20 02:36 Completed Labs from last 24 hours 09/19/20 09/19/20 09/18/20 04:52 04:52 11:05 WBC 7.9 RBC 4.67 Hgb 14.3 Hct 44.4 MCV 95.1 H MCH 30.6 MCHC 32.2 RDW 13.2 Plt Count 189 MPV 9.8 Neut % (Auto) 68.5 Lymph % (Auto) 19.1 [place] % (Auto) 6.3 Eos % (Auto) 5.1 Baso % (Auto) 0.6 Neut # (Auto) 5.41 Lymph # (Auto) 1.5 [place] # (Auto) 0.5 Eos # (Auto) 0.4 Baso # (Auto) 0.1 Nucleated RBC % (a uto) 0 Nucleated RBCs # 0.0 Sodium 131 L Potassium 3.7 Chloride 98 Carbon Dioxide 24 Anion Gap 12.7 BUN 15 Creatinine 0.9 GFR Calculation 89.0 L Glucose 88 Calculated Osmolal ity 272 L Calcium 7.9 L Total Bilirubin 0.8 AST 20 ALT 23 Alkaline Phosphata se 78 Total Protein 5.9 L Albumin 2.7 L Globulin 3.2 Triglycerides 95 09/18/20 09/18/20 11:05 11:05 WBC 11.6 H RBC 4.98 Hgb 15.6 Hct 46.1 MCV 92.6 MCH 31.3 MCHC 33.8 RDW 13.2 Plt Count 186 MPV 9.7 Neut % (Auto) 77.8 Lymph % (Auto) 12.8 [place] % (Auto) 6.1 Eos % (Auto) 2.6 Baso % (Auto) 0.4 Neut # (Auto) 9.00 H Lymph # (Auto) 1.5 [place] # (Auto) 0.7 Eos # (Auto) 0.3 Baso # (Auto) 0.1 Nucleated RBC % (a uto) 0 Nucleated RBCs # 0.0 Sodium 129 L Potassium 4.0 Chloride 97 L Carbon Dioxide 21 L Anion Gap 15.0 BUN 17 Creatinine 0.8 GFR Calculation 101.9 Glucose 118 H Calculated Osmolal ity 271 L Calcium 7.9 L Total Bilirubin 1.1 AST 16 ALT 22 Alkaline Phosphata se 78 Total Protein 6.3 L Albumin 2.8 L Globulin 3.5 Triglycerides Vitals: Last Vital Signs Temp 98.6 F 09/19/20 07:39 Pulse 96 09/19/20 07:39 Resp 16 09/19/20 07:39 BP 134/84 09/19/20 07:39 Pulse Ox 96 09/19/20 07:39 Discharge Plan Discharge Patient Disposition: Home Condition: Stable Prescriptions: New ciprofloxacin HCl [Cipro] 500 mg tablet 500 mg PO BID Qty: 14 RF: 0 metronidazole [Flagyl] 500 mg tablet 250 mg PO QID Qty: 28 RF: 0 Continued lisinopril 20 mg tablet 20 mg PO DAILY RF: 0 Discharge Orders: Discharge Order (Routine); Ordered 09/19/20 Ordered By: Ike Greco Referrals: Xavier Mayorga MD [Physician] - (Return to surgery office in 2 weeks) Cameron Campbell MD [Primary Care Provider] - 4-7 days Discharge Diet: Low Fat Discharge Activity: Increase activity as tolerated Patient Instructions: Opioid Safety Activity Restrictions/Additional Instructions: May discharge after dietary consult regarding low-fat diet, weight loss diet. Take all medicines as prescribed Return for any concerns Keep follow-up with primary care provider as well as surgeon Follow-up with your primary care provider regarding right kidney lesions. Could consider outpatient ultrasound and/or MRI. Discharge Attestations Time Spent in Discharge Care*: greater than 30 min Quality Metrics Clinical Quality Measures During this hospital stay, did patient experience: None Coding Level of Care Code Acute Chg FW ID note Diagnoses Acute cholecystitis K81.0
[2020-09-19] MEDS: lisinopril 20 mg Tablet PO (08:43)
--- NOTE | 2020-09-19 10:45 | PC.NUTR ---
Dietitian consult for low fat diet education completed. Also provided education on weight loss nutrition tips. Pt verbalized understanding. See full nutrition assessment for further details.
[2020-09-19 11:35] VITALS: BP 134/84; PULSE 96; RESP 16; TEMP 37; O2SAT 96
--- NOTE | 2020-09-19 15:11 | PC.RESP ---
Smoking Cessation information sent to patient.
== END 2020-09-19 11:38 | disposition home or self-care (01) | DRG 445 ==
LOC: ER 09-17 00:21 → MEDSURG 09-17 03:58 → CSU 09-17 07:20 → MEDSURG 09-17 23:56 → CSU 09-24 11:04 → MEDSURG 09-24 11:04
PROVIDERS: Student in an Organized Health Care Education/Training Program; Admitting Provider Internal Medicine; Emergency Provider Family Medicine; PCP Family Medicine; Visit Provider Internal Medicine
DX: K81.0 Acute cholecystitis (principal); Z68.43 Body mass index [BMI] 50.0-59.9, adult; E87.1 Hypo-osmolality and hyponatremia; E78.00 Pure hypercholesterolemia, unspecified; I10 Essential (primary) hypertension; G47.33 Obstructive sleep apnea (adult) (pediatric); Z86.010 Personal history of colon polyps; F17.220 Nicotine dependence, chewing tobacco, uncomplicated; E66.01 Morbid (severe) obesity due to excess calories; R73.9 Hyperglycemia, unspecified; N28.9 Disorder of kidney and ureter, unspecified; K76.0 Fatty (change of) liver, not elsewhere classified; F17.290 Nicotine dependence, other tobacco product, uncomplicated
CPT/HCPCS: 36415; 71045; 74177; 76705; 80053; 81001; 83036; 83690; 84443; 84478; 85025; 85651; 86140; 87426; 96365; 96372; 96375; 99285; G0378; J1170; J1650; J2405; J2543; J7030; J7799; Q9967

== ENCOUNTER → 2020-11-18 11:55 | Outpatient (BNVA) | payer OTHER, SELFPAY | PROVIDERS: PCP Family Medicine; Visit Provider Internal Medicine | DX: Z20.822 Contact with and (suspected) exposure to COVID-19 (principal) | CPT/HCPCS: 87635 ==

== ENCOUNTER 2020-11-21 08:39 | Day surgery (SDC) | payer OTHER, SELFPAY ==
--- NOTE | 2020-11-21 08:54 | ANES.PREANE2 ---
Pre-Anesthetic Assessment Pre-Anesthetic Assessment: Height/Weight: Height 1.68 m Weight 163.293 kg Proposed Procedure: Operation Date: 11/21/20 10:00 Proposed Procedures p Colonoscopy 51989 Z12.11(Not Applicable) - Brandin Moise MD Was Beta Parth taken within 24 hours: N/A Was Clonidine taken within 24 hours: N/A Social: Social History: No alcohol and No tobacco Exam: Pre-Anes Outpt Exam: alert, oriented x 3, clear to auscultation bilaterally and regular rate & rhythm Airway: Submandibular: WNL Cervical ROM: WNL MP: 2 Dentition: Full Pulmonary: Pulmonary: Sleep apnea CV/HEM: CV/HEM: HTN Metabolic: Metabolic: Morbid obesity Anesthetic Plan: ASA status: 3 Anesthesia: MAC Risk of > 500 ml blood loss (7ml/kg in children): No PFSH Anesthesia PFSH: Medical History (Updated 09/17/20 @ 10:58 by Ike Greco MD) Dyspnea on exertion Hypercholesterolemia Hypertension Obstructive sleep apnea Surgical History (Updated 09/17/20 @ 03:43 by Joselito Childress MD) H/O colonoscopy Removal of 6 precancerous polyps Family History Other Cancer Hypertension Stroke Social History Smoking and tobacco status: current every day smoker smokeless tobacco Alcohol intake: current Alcohol intake frequency: holidays/special occasions only Household members: spouse Housing: House Data Anesthesia Cardiac Studies: No Data to Display
[2020-11-21] MEDS: sodium chloride 0.9% 1,000 ML 30 ML IV (09:00)
[2020-11-21 09:10] VITALS: BP 147/123; PULSE 99; RESP 18; TEMP 36.4; O2SAT 98
--- NOTE | 2020-11-21 09:43 | W.PM.OPSFHP ---
Same Day Surgery H&P Indication for Procedure/HPI DATE OF PROCEDURE: November 21, 2020 CHIEF COMPLAINT/INDICATIONFOR SURGICAL PROCEDURE: History of colon polyps PREOP DIAGNOSIS: History of colon polyp PLANNED PROCEDRUE: Operation Date: 11/21/20 10:00 Proposed Procedures p Colonoscopy 43965 Z12.11(Not Applicable) - Brandin Moise MD Medications/Allergies* Home Medications Medication Instructions Recorded Confirmed Type lisinopril 20 mg tablet 20 mg PO DAILY 03/24/20 11/18/20 History Allergies/Adverse Reactions Allergy/AdvReac Type Severity Reaction Status Date / Time acetaminophen [From Percocet] Allergy Unknown Unknown Verified 11/21/20 09:08 oxycodone [From Percocet] Allergy Unknown Unknown Verified 11/21/20 09:08 propoxyphene Allergy Unknown Unknown Verified 11/21/20 09:08 [From Darvocet-N] tramadol Allergy Unknown Unknown Verified 11/21/20 09:08 Current Medications: Generic Name Dose Route Start Last Admin Trade Name Freq PRN Reason Stop Dose Admin Sodium Chloride 1,000 mls @ 30 mls/hr 11/21/20 09:00 11/21/20 09:00 Sodium Chloride 0.9% IV 11/22/20 08:59 30 mls/hr .Q24H ADRIANO Administration Pertinent History/Comorbid Conditions* Medical History (Updated 09/17/20 @ 10:58 by Ike Greco MD) Dyspnea on exertion Hypercholesterolemia Hypertension Obstructive sleep apnea Surgical History (Updated 09/17/20 @ 03:43 by Joselito Childress MD) H/O colonoscopy Removal of 6 precancerous polyps Family History (Updated 09/17/20 @ 03:37 by Joselito Childress MD) Cancer Hypertension Stroke Social History Smoking and tobacco status: current every day smoker smokeless tobacco Alcohol intake: current Alcohol intake frequency: holidays/special occasions only Household members: spouse Housing: House Pertinent Exam Findings alert, oriented x 3, clear to auscultation bilaterally, regular rate & rhythm, operative site marked and procedure specific exam findings Recommendations Surgery/Procedure today Coding Level of Care Code Acute Pot Reliner for [facility]
[2020-11-21 10:41] VITALS: BP 136/92; PULSE 72; RESP 16; TEMP 36.1; O2SAT 96
[2020-11-21 10:52] VITALS: BP 106/81; PULSE 76; RESP 18; O2SAT 96
--- NOTE | 2020-11-21 11:40 | ANE.PACU2 ---
Inpatient post-anesthesia follow up: Airway intact: Yes Vital signs: Temperature 97 F Pulse Rate 76 Respiratory Rate 18 Blood Pressure 106/81 Pulse Oximetry 96 Oxygen Delivery Me thod Room Air Oxygen Flow Rate Fraction of Inspir ed Oxygen Hydration adequate: Yes Nausea and vomiting: No Pain level: 1 Mental status: Baseline
== END 2020-11-21 11:14 | disposition home or self-care (01) ==
PROVIDERS: PCP Family Medicine; Visit Provider Internal Medicine
PROC: 0DJD8ZZ Inspection of Lower Intestinal Tract, Via Natural or Artificial Opening Endoscopic (ICD-10-PCS; CPT 45378; principal; 2020-11-21 10:00)
DX: Z12.11 Encounter for screening for malignant neoplasm of colon (principal); Z86.010 Personal history of colon polyps; K57.30 Diverticulosis of large intestine without perforation or abscess without bleeding; E78.00 Pure hypercholesterolemia, unspecified; I10 Essential (primary) hypertension; G47.33 Obstructive sleep apnea (adult) (pediatric); Z82.49 Family history of ischemic heart disease and other diseases of the circulatory system; F17.290 Nicotine dependence, other tobacco product, uncomplicated
CPT/HCPCS: 45378; 96360; 96361; J2704; J7030

== ENCOUNTER 2021-11-11 13:35 | Observation (INO) | payer OTHER, SELFPAY ==
[2021-11-11] VITALS (24 sets, daily range): BP systolic 114–176; BP diastolic 70–119; PULSE 56–78; RESP 10–25; TEMP 36.4–36.5; O2SAT 93–100; BMI 56.1
--- NOTE | 2021-11-11 13:49 | ECG_ITS ---
[facility] Test Date: 2021-11-11 Pat Name: Lee Crawford Department: Room: Gender: Male Door Maker: : 1970 Requested By: Rafi Manrique Order Number: [id number] Hanna MD: Antonio Bolaños M.D. Measurements Intervals [place] Rate: 63 P: 32 MD: 141 QRS: 52 QRSD: 94 T: 90 QT: 380 QTc: 390 Interpretive Statements SINUS RHYTHM LOW QRS VOLTAGE IN PRECORDIAL LEADS [QRS DEFLECTION < 1.0 mV IN CHEST LEADS] NONSPECIFIC T-WAVE ABNORMALITY No previous ECG available for comparison Electronically Signed On 11-11-2021 16:28:06 CDT by Antonio Bolaños M.D. [email or web address]
--- NOTE | 2021-11-11 14:58 | CTR_ITS ---
PROCEDURE INFORMATION: Exam: CT Head Without Contrast Exam date and time: 11/11/2021 4:50 PM Age: 51 years old Clinical indication: Dizziness; Additional info: Gait instability TECHNIQUE: Imaging protocol: Computed tomography of the head without contrast. Radiation optimization: All CT scans at this facility use at least one of these dose optimization techniques: automated exposure control; mA and/or kV adjustment per patient size (includes targeted exams where dose is matched to clinical indication); or iterative reconstruction. COMPARISON: No relevant prior studies available. RADIATION DOSE METRICS: Total DLP (mGy-cm): 1165.48 FINDINGS: Brain: Normal. No hemorrhage. Unremarkable white matter. No mass effect. Cerebral ventricles: No ventriculomegaly. Paranasal sinuses: Paranasal sinus opacities. Mastoid air cells: Visualized mastoid air cells are well aerated. Bones/joints: Unremarkable. No acute fracture. Soft tissues: Unremarkable. CT/CT head wo con* [id number] IMPRESSION: Negative for intracranial hemorrhage or mass effect.
--- NOTE | 2021-11-11 14:58 | CTR_ITS ---
PROCEDURE INFORMATION: Exam: CTA Head With Contrast, Arteries Exam date and time: 11/11/2021 4:53 PM Age: 51 years old Clinical indication: Dizziness and giddiness; Additional info: Gait instability TECHNIQUE: Imaging protocol: Computed tomographic angiography of the head with contrast. 3D rendering (Not supervised by radiologist): MIP and/or 3D reconstructed images were created by the technologist. Radiation optimization: All CT scans at this facility use at least one of these dose optimization techniques: automated exposure control; mA and/or kV adjustment per patient size (includes targeted exams where dose is matched to clinical indication); or iterative reconstruction. Contrast material: OMNIPAQUE 350; Contrast volume: 95 ml; Contrast route: INTRAVENOUS (IV); COMPARISON: CT head wo con* [id number] 11/11/2021 4:50 PM RADIATION DOSE METRICS: Total DLP (mGy-cm): 1165.48 FINDINGS: ANTERIOR CIRCULATION: Right internal carotid artery: Unremarkable. Intracranial segment is patent with no significant stenosis. No aneurysm. Right middle cerebral artery: Unremarkable. No occlusion or significant stenosis. No aneurysm. Right anterior cerebral artery: Unremarkable. No occlusion or significant stenosis. No aneurysm. Left internal carotid artery: Unremarkable. Intracranial segment is patent with no significant stenosis. No aneurysm. Left middle cerebral artery: Unremarkable. No occlusion or significant stenosis. No aneurysm. Left anterior cerebral artery: Unremarkable. No occlusion or significant stenosis. No aneurysm. POSTERIOR CIRCULATION: Right vertebral artery: Unremarkable. No occlusion or significant stenosis. No aneurysm. Left vertebral artery: Unremarkable. No occlusion or significant stenosis. No aneurysm. Basilar artery: Unremarkable. No occlusion or significant stenosis. No aneurysm. Right posterior cerebral artery: Unremarkable. No occlusion or significant stenosis. No aneurysm. Left posterior cerebral artery: Unremarkable. No occlusion or significant stenosis. No aneurysm. IMPRESSION: Patent intracranial arteries. PROCEDURE INFORMATION: Exam: CTA Neck With Contrast Exam date and time: 11/11/2021 4:53 PM Age: 51 years old Clinical indication: Dizziness and giddiness; Additional info: Gait instability TECHNIQUE: Imaging protocol: Computed tomographic angiography of the neck with contrast. 3D rendering (Not supervised by radiologist): MIP and/or 3D reconstructed images were created by the technologist. Radiation optimization: All CT scans at this facility use at least one of these dose optimization techniques: automated exposure control; mA and/or kV adjustment per patient size (includes targeted exams where dose is matched to clinical indication); or iterative reconstruction. Contrast material: OMNIPAQUE 350; Contrast volume: 95 ml; Contrast route: INTRAVENOUS (IV); COMPARISON: CT head wo con* [id number] 11/11/2021 4:50 PM RADIATION DOSE METRICS: Total DLP (mGy-cm): 1165.48 FINDINGS: Right common carotid artery: No stenosis. No dissection or occlusion. Right internal carotid artery: No stenosis of the extracranial segment. No dissection or occlusion. Right external carotid artery: No occlusion or stenosis of the origin. Left common carotid artery: No stenosis. No dissection or occlusion. Left internal carotid artery: No stenosis of the extracranial segment. No dissection or occlusion. Left external carotid artery: No occlusion or stenosis of the origin. Right vertebral artery: No stenosis. No dissection or occlusion. Left vertebral artery: Non-dominant and diminutive. No stenosis is detected. No dissection or occlusion. Soft tissues: No soft tissue swelling. Bones/joints: Mild to moderate degenerative changes are present in the lower cervical spine. No acute fracture. Spinal straightening may be due to position or muscle spasm. CT/CT angio headneck* [id number] IMPRESSION: Patent neck carotid and vertebral arteries REFERENCES: NASCET CRITERIA. The degree of internal carotid artery stenosis is based on NASCET criteria. Normal is no stenosis. Mild is less than 50% stenosis. Moderate is 50-69% stenosis. Severe is 70% to 99% stenosis. Total occlusion is no detectable patent lumen.
--- NOTE | 2021-11-11 14:58 | XR_ITS ---
WS: [id number] XR chest 1V portable [id number] REASON FOR EXAM: fatigue FINDINGS: The chest appears unchanged compared to 09/18/2020. Mild tortuosity of the thoracic aorta. Normal heart size. Calcified granulomatous disease in both hemithoraces. No lung nodule or lung mass. No acute pulmonary parenchymal or pleural finding is identified. XR/XR chest 1V portable [id number] IMPRESSION: No acute chest abnormality.
--- NOTE | 2021-11-11 15:02 | W.ED.GENADLT ---
HPI - General Adult General: Chief complaint: Dizziness Stated complaint: sent by doctor for catscan Time Seen by Provider: 11/11/21 14:44 History of Present Illness: Patient is a 51-year-old male with history of hypertension and morbid obesity presenting to the emergency room for evaluation of gait instability. Over the last 3 days, patient reports that he he is having difficulty balancing. Additionally reports feeling sensation of trunk whenever he stands up. Patient denies any recent alcohol use or drug use. Patient has not used more of his lisinopril use. Patient denies any vertigo sensation or focal weakness in the arms or legs. Patient denies any hand eye coordination difficulties. Patient denies any associate chest pain, shortness breath, palpitation, nausea/vomiting, diarrhea melena or hematochezia. Onset:3 days ago Duration:3 days Location:home Severity:moderate Associated symptoms: Deny chest pain, dyspnea, nausea, rash, palpitations or vomiting Review of Systems Const: Denies: fever(s) or chills Eyes: Denies: change in vision ENMT: Denies: mouth pain Card: Denies: chest pain or palpitations Resp: Denies: dyspnea or non-productive cough GI: Denies: abdominal pain, nausea, vomiting or diarrhea : Denies: dysuria Musc: Denies: extremity pain Skin/Breast: Denies: rash or new lesions Neuro: Reports: other (+gait instability); Denies: weakness in extremities Psych: Reports: other (Normal mood) Yahir/Lymph: Denies: easy bruising PFSH ED PFSH: Medical History Dyspnea on exertion Hypercholesterolemia Hypertension Obstructive sleep apnea Surgical History H/O colonoscopy Removal of 6 precancerous polyps Family History Other Cancer Hypertension Stroke Social History Smoking and tobacco status: current every day smoker smokeless tobacco Alcohol intake: current Alcohol intake frequency: holidays/special occasions only Household members: spouse Housing: House Physical Exam Const: COMMON NORMALS: alert HENMT: COMMON NORMALS: atraumatic HEAD & SCALP: atraumatic MOUTH: moist mucous membranes not abnormal Eye: COMMON NORMALS: EOMs intact bilaterally and conjunctivae normal CONJUNCTIVA: Yes conjunctivae normal Neck/C-Spine: COMMON NORMALS: full ROM and supple Resp: COMMON NORMALS: normal respiratory effort and clear to auscultation bilaterally AUSCULTATION: clear to auscultation bilaterally Cardio: COMMON NORMALS: regular rate RATE: regular rate GI: COMMON NORMALS: Soft to palpation and non-tender PALPATION: Yes Soft to palpation Extremity: COMMON NORMALS: full ROM Neuro: SENSORIUM/ORIENTATION: Yes alert MOTOR EXAM: No Abnormal motor strength present and Other motor observations present (no focal motor deficits) OTHER: Mental status? Awake, alert, and oriented to self, year, month, location, and situation.? Following simple axial and appendicular commands.? Has appropriate fund of knowledge, comprehension, and insight.? Able to recall and understands pertinent aspects of medical history and current treatment status.? ? Language? Speech is fluent without word-finding difficulties.? Intact naming, expression, hospital receptionist, and repetition.? ? Cranial nerves? 2,3,4,6: PERRL, EOMI with no nystagmus. 5: Intact sensation to light touch, symmetric? 7: Smile symmetrical, no facial droop.? 8: Hearing grossly intact.? 9,10: Normal palate movement.? 11: Normal strength in trapezius bilaterally 12: Tongue protrudes midline.? ? Motor examination? Normal bulk & tone. Strength as follows (R/L): Delts (5/5), Biceps (5/5), Triceps (5/5), Wrist ext (5/5), hip flexors (5/5), plantarflexors (5/5), dorsiflexors (5/5). ? Sensation? Light Touch: Grossly intact and equal in upper and lower extremities bilaterally? Romberg: Negative.? Distal joint position sense intact ? Coordination? [id number]-gl-[id number]-finger movements intact without dysmetria or past-pointing.? Rapid fingertaps: preserved amplitude without decriment.? No tremor, myoclonus or truncal ataxia.? ? Gait/stance? + Unsteady gait, unable to perform Romberg due to gait instability Psych: COMMON NORMALS: speech normal SPEECH: Yes normal speech MOOD & AFFECT: Yes euthymic mood Course Vital Signs: Vital signs: Vital Signs Temperature 97.5 F L 11/11/21 13:46 Pulse Rate 64 11/11/21 18:01 Respiratory Rate 22 H 11/11/21 18:01 Blood Pressure 152/93 11/11/21 18:01 Pulse Oximetry 100 11/11/21 18:01 [facility] - General Adult Medical Decision Making Patient is a 51-year-old male with a history of hypertension, morbid obesity presenting to the emergency room with gait instability worsening over the last 3 days. On physical exam, patient is neurologically intact other than has been staying steady balance and unable to ambulate with a steady gait. Patient has no other posterior fossa presentation including dysphagia, difficulty swallowing, diplopia, vertigo sensation. CT imaging negative for any acute findings. Troponin x2 within normal limit. Patient is hemoconcentrated 17.4. Patient received 1 L fluid still continues to have gait instability. Patient will be admitted to hospital for MRI. Disposition: admission Lab Data : 11/11/21 14:53 11/11/21 14:53 Radiology Impressions Chest X-Ray 11/11/21 14:58 IMPRESSION: No acute chest abnormality. Head CT 11/11/21 14:58 IMPRESSION: Negative for intracranial hemorrhage or mass effect. Head/Neck CTA 11/11/21 14:58 IMPRESSION: Patent neck carotid and vertebral arteries REFERENCES: NASCET CRITERIA. The degree of internal carotid artery stenosis is based on NASCET criteria. Normal is no stenosis. Mild is less than 50% stenosis. Moderate is 50-69% stenosis. Severe is 70% to 99% stenosis. Total occlusion is no detectable patent lumen. Laboratory Results WBC 6.6 10^3/uL (4.0-10.0) 11/11/21 14:53 RBC 5.62 10^6/uL (4.1-5.3) H 11/11/21 14:53 Hgb 17.3 g/dL (11.7-16.6) H 11/11/21 14:53 Hct 50.7 % (42.0-52.0) 11/11/21 14:53 MCV 90.2 fl (80-94) 11/11/21 14:53 MCH 30.8 pg (28.0-34.0) 11/11/21 14:53 MCHC 34.1 g/dL (30.0-36.0) 11/11/21 14:53 RDW 13.1 % (12.1-15.1) 11/11/21 14:53 Plt Count 200 10^3/cmm (130-400) 11/11/21 14:53 MPV 9.9 fL (7.4-10.4) 11/11/21 14:53 Neut % (Auto) 76.3 % 11/11/21 14:53 Lymph % (Auto) 18.4 % 11/11/21 14:53 [place] % (Auto) 3.2 % 11/11/21 14:53 Eos % (Auto) 0.9 % 11/11/21 14:53 Baso % (Auto) 0.6 % 11/11/21 14:53 Neut # (Auto) 5.07 10^3/uL (1.8-7.7) 11/11/21 14:53 Lymph # (Auto) 1.2 10^3/uL (0.8-4.8) 11/11/21 14:53 [place] # (Auto) 0.2 10^3/uL (0.2-0.9) 11/11/21 14:53 Eos # (Auto) 0.1 10^3/uL (0.0-0.8) 11/11/21 14:53 Baso # (Auto) 0.0 10^3/uL (0.0-0.1) 11/11/21 14:53 Nucleated RBC % (auto) 0 % 11/11/21 14:53 Nucleated RBCs # 0.0 /100WBC 11/11/21 14:53 Sodium 136 mmol/L (136-145) 11/11/21 14:53 Potassium 4.1 mmol/L (3.5-5.1) 11/11/21 14:53 Chloride 101 mmol/L (98-107) 11/11/21 14:53 Carbon Dioxide 24 mmol/L (22-29) 11/11/21 14:53 Anion Gap 15.1 (5-19) 11/11/21 14:53 BUN 17 mg/dL (6-20) 11/11/21 14:53 Creatinine 0.8 mg/dL (0.7-1.2) 11/11/21 14:53 GFR Calculation 101.5 mL/min (90-130) 11/11/21 14:53 Glucose 114 mg/dL (65-115) 11/11/21 14:53 Calculated Osmolality 284 mOsm/kg (285-295) L 11/11/21 14:53 Calcium 9.3 mg/dL (8.5-10.5) 11/11/21 14:53 Total Bilirubin 0.5 mg/dL (0.15-1.2) 11/11/21 14:53 AST 23 U/L (0-40) 11/11/21 14:53 ALT 49 U/L (0-41) H 11/11/21 14:53 Alkaline Phosphatase 109 IU/L (40-130) 11/11/21 14:53 Troponin T Baseline 7 ng/L (0-15) 11/11/21 14:53 Troponin T 120 Minute 6.71 ng/L (0-15) 11/11/21 17:12 Delta Troponin T -0.29 ABS# (0-10) L 11/11/21 17:12 Total Protein 6.9 g/dL (6.6-8.7) 11/11/21 14:53 Albumin 4.2 g/dL (3.5-5.2) 11/11/21 14:53 Globulin 2.7 g/dL (1.3-4.6) 11/11/21 14:53 Lipase 30 U/L (13-60) 11/11/21 14:53 Urine Color Dark yellow (Yellow) 11/11/21 15:44 Urine Appearance Clear (CLEAR) 11/11/21 15:44 Urine pH 7 (5-7) 11/11/21 15:44 Ur Specific [place] 1.010 (1.005-1.030) 11/11/21 15:44 Urine Protein Neg (Negative) 11/11/21 15:44 Urine Glucose (UA) Norm (Normal) 11/11/21 15:44 Urine Ketones Negative (Negative) 11/11/21 15:44 Urine Blood Neg (Negative) 11/11/21 15:44 Urine Nitrate Negative (Negative) 11/11/21 15:44 Urine Bilirubin Neg (Negative) 11/11/21 15:44 Urine Urobilinogen Norm mg/dL (Negative) 11/11/21 15:44 Ur Leukocyte Esterase Negative (Negative) 11/11/21 15:44 Imaging Data Other Imaging: Radiologist's impression: [facility] [address] [place] [address] CT Scan Report Signed Patient: Lee Crawford Unit #: [id number] : 1970 Age/Sex: 51 / M ADM Date: 11/11/21 Loc: ER Room/Bed: Attending Dr: Ordering Provider/Ordering MD: Deena Hackett MD Date of Service: 11/11/21 Procedure(s): CT angio headneck* [id number] Accession Number(s): [id number] Report Number: [id number] PROCEDURE INFORMATION: Exam: CTA Head With Contrast, Arteries Exam date and time: 11/11/2021 4:53 PM Age: 51 years old Clinical indication: Dizziness and giddiness; Additional info: Gait instability TECHNIQUE: Imaging protocol: Computed tomographic angiography of the head with contrast. 3D rendering (Not supervised by radiologist): MIP and/or 3D reconstructed images were created by the technologist. Radiation optimization: All CT scans at this facility use at least one of these dose optimization techniques: automated exposure control; mA and/or kV adjustment per patient size (includes targeted exams where dose is matched to clinical indication); or iterative reconstruction. Contrast material: OMNIPAQUE 350; Contrast volume: 95 ml; Contrast route: INTRAVENOUS (IV);? COMPARISON: CT head wo con* [id number] 11/11/2021 4:50 PM RADIATION DOSE METRICS: Total DLP (mGy-cm): 1165.48 FINDINGS: ANTERIOR CIRCULATION: Right internal carotid artery: Unremarkable. Intracranial segment is patent with no significant stenosis. No aneurysm. Right middle cerebral artery: Unremarkable. No occlusion or significant stenosis. No aneurysm.? Right anterior cerebral artery: Unremarkable. No occlusion or significant stenosis. No aneurysm.? Left internal carotid artery: Unremarkable. Intracranial segment is patent with no significant stenosis. No aneurysm. Left middle cerebral artery: Unremarkable. No occlusion or significant stenosis. No aneurysm.? Left anterior cerebral artery: Unremarkable. No occlusion or significant stenosis. No aneurysm.? POSTERIOR CIRCULATION: Right vertebral artery: Unremarkable. No occlusion or significant stenosis. No aneurysm.? Left vertebral artery: Unremarkable. No occlusion or significant stenosis. No aneurysm.? Basilar artery: Unremarkable. No occlusion or significant stenosis. No aneurysm. Right posterior cerebral artery: Unremarkable. No occlusion or significant stenosis. No aneurysm.? Left posterior cerebral artery: Unremarkable. No occlusion or significant stenosis. No aneurysm.? IMPRESSION:? Patent intracranial arteries. PROCEDURE INFORMATION: Exam: CTA Neck With Contrast Exam date and time: 11/11/2021 4:53 PM Age: 51 years old Clinical indication: Dizziness and giddiness; Additional info: Gait instability TECHNIQUE: Imaging protocol: Computed tomographic angiography of the neck with contrast. 3D rendering (Not supervised by radiologist): MIP and/or 3D reconstructed images were created by the technologist. Radiation optimization: All CT scans at this facility use at least one of these dose optimization techniques: automated exposure control; mA and/or kV adjustment per patient size (includes targeted exams where dose is matched to clinical indication); or iterative reconstruction. Contrast material: OMNIPAQUE 350; Contrast volume: 95 ml; Contrast route: INTRAVENOUS (IV);? COMPARISON: CT head wo con* [id number] 11/11/2021 4:50 PM RADIATION DOSE METRICS: Total DLP (mGy-cm): 1165.48 FINDINGS: Right common carotid artery: No stenosis. No dissection or occlusion. Right internal carotid artery: No stenosis of the extracranial segment. No dissection or occlusion. Right external carotid artery: No occlusion or stenosis of the origin.? Left common carotid artery: No stenosis. No dissection or occlusion. Left internal carotid artery: No stenosis of the extracranial segment. No dissection or occlusion. Left external carotid artery: No occlusion or stenosis of the origin.? Right vertebral artery: No stenosis. No dissection or occlusion. Left vertebral artery:? Non-dominant and diminutive.? No stenosis is detected. No dissection or occlusion. Soft tissues:? No soft tissue swelling. Bones/joints: Mild to moderate degenerative changes are present in the lower cervical spine. No acute fracture. Spinal straightening may be due to position or muscle spasm. CT/CT angio headneck* [id number] IMPRESSION:? Patent neck carotid and vertebral arteries ? REFERENCES: NASCET CRITERIA. The degree of internal carotid artery stenosis is based on NASCET criteria. Normal is no stenosis. Mild is less than 50% stenosis. Moderate is 50-69% stenosis. Severe is 70% to 99% stenosis. Total occlusion is no detectable patent lumen. ? Dictated By: Venkatesh Howell MD Signed By: Venkatesh Howell MD Signed Date/Time: 11/11/21 180 DD/ [address] [address] [address] Scan Report Signed Patient: Lee Crawford Unit #: [id number] : 1970 Age/Sex: 51 / M ADM Date: 11/11/21 Loc: ER Room/Bed: Attending Dr: Ordering Provider/Ordering MD: Deena Hackett MD Date of Service: 11/11/21 Procedure(s): CT head wo con* [id number] Accession Number(s): [id number] Report Number: [id number] PROCEDURE INFORMATION: Exam: CT Head Without Contrast Exam date and time: 11/11/2021 4:50 PM Age: 51 years old Clinical indication: Dizziness; Additional info: Gait instability TECHNIQUE: Imaging protocol: Computed tomography of the head without contrast. Radiation optimization: All CT scans at this facility use at least one of these dose optimization techniques: automated exposure control; mA and/or kV adjustment per patient size (includes targeted exams where dose is matched to clinical indication); or iterative reconstruction. COMPARISON: No relevant prior studies available. RADIATION DOSE METRICS: Total DLP (mGy-cm): 1165.48 FINDINGS: Brain: Normal. No hemorrhage. Unremarkable white matter. No mass effect. Cerebral ventricles: No ventriculomegaly. Paranasal sinuses: Paranasal sinus opacities. Mastoid air cells: Visualized mastoid air cells are well aerated. Bones/joints: Unremarkable. No acute fracture. Soft tissues: Unremarkable. CT/CT head wo con* [id number] IMPRESSION: Negative for intracranial hemorrhage or mass effect. ? 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
[2021-11-11] MEDS: sodium chloride 0.9% 1,000 ML 999 ML IV (15:03)
[2021-11-11 15:23] LABS: Basophils % 0.6 %; Eosinophils # 0.1 10^3/uL (0.0-0.8); Eosinophils % 0.9 %; Hematocrit 50.7 % (42.0-52.0); Hemoglobin 17.3 g/dL (11.7-16.6); Lymphocytes # 1.2 10^3/uL (0.8-4.8); Lymphocytes % 18.4 %; Mean Corpuscular HGB Conc 34.1 g/dL (30.0-36.0); Mean Corpuscular Hemoglobin 30.8 pg (28.0-34.0); Mean Corpuscular Volume 90.2 fl (80-94); Mean Platelet Volume 9.9 fL (7.4-10.4); Monocytes # 0.2 10^3/uL (0.2-0.9); Monocytes % 3.2 %; Neutrophils # 5.07 10^3/uL (1.8-7.7); Neutrophils % 76.3 %; Nucleated Red Blood Cells % 0 %; Platelet Count 200 10^3/cmm (130-400); Red Blood Count 5.62 10^6/uL (4.1-5.3); Red Cell Distribution Width 13.1 % (12.1-15.1); White Blood Count 6.6 10^3/uL (4.0-10.0)
[2021-11-11 15:53] LABS: Troponin(5th) Baseline 7 ng/L (0-15)
[2021-11-11 15:56] LABS: Alanine Aminotransferase 49 U/L (0-41); Albumin Level 4.2 g/dL (3.5-5.2); Alkaline Phosphatase 109 IU/L (40-130); Anion Gap 15.1 (5-19); Aspartate Amino Transferase 23 U/L (0-40); Blood Urea Nitrogen 17 mg/dL (6-20); Calcium 9.3 mg/dL (8.5-10.5); Carbon Dioxide 24 mmol/L (22-29); Chloride 101 mmol/L (98-107); Creatinine Clr Calc Pharmacy 154.9472; Globulin 2.7 g/dL (1.3-4.6); Glomerular Filtration Rate 101.5 mL/min (90-130); Glucose 114 mg/dL (65-115); Lipase 30 U/L (13-60); Osmolality Calculated 284 mOsm/kg (285-295); Potassium 4.1 mmol/L (3.5-5.1); Sodium 136 mmol/L (136-145); Total Bilirubin 0.5 mg/dL (0.15-1.2); Total Protein 6.9 g/dL (6.6-8.7)
[2021-11-11] MEDS: iohexol 350 mg/mL 100 mL Btl IV (16:59)
--- NOTE | 2021-11-11 16:59 | ECG_ITS ---
[facility] Test Date: 2021-11-11 Pat Name: Lee Crawford Department: Room: Gender: Male Nurse School: : 1970 Requested By: Deena Hackett Order Number: [id number] Hanna MD: Antonio Bolaños M.D. Measurements Intervals [place] Rate: 58 P: 32 VT: 141 QRS: 49 QRSD: 84 T: 243 QT: 393 QTc: 388 Interpretive Statements SINUS BRADYCARDIA NONSPECIFIC T-WAVE ABNORMALITY Compared to ECG 11/11/2021 13:52:51 Sinus rhythm no longer present T-wave abnormality still present Electronically Signed On 11-11-2021 23:25:22 CDT by Antonio Bolaños M.D. [email or web address]
[2021-11-11 18:04] LABS: Troponin 5 2HR 6.71 ng/L (0-15)
[2021-11-11 18:21] LABS: Add Urine Microscopic? NO; Charge for UA Resulting for Rev
[2021-11-11 18:24] LABS: Bilirubin Urine Neg (Negative); Blood Urine Neg (Negative); Glucose Urine UA Norm (Normal); Ketones Urine Negative (Negative); Leukocyte Esterase Urine Negative (Negative); Nitrate Urine Negative (Negative); Protein Urine Neg (Negative); Urine Appearance Clear (CLEAR); Urine Color Dark Yellow (Yellow); Urobilinogen Urine Norm (Negative); pH Urine 7 (5-7)
[2021-11-11 19:09] LABS: Troponin 5 2HR Delta -0.29 ABS# (0-10)
--- NOTE | 2021-11-11 20:06 | PM.HP ---
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 He had a brief headache over the left eye 3 days back, but denies any persistent headache, has had some left-sided neck tenderness and neck feeling stiff for a while, but denies any direct injury. Denies any fever or chills. Has no photosensitivity. Denies any earache or ear drainage, no hearing changes. Denies any rashes or tick bites. Reports after COVID-19 had some persistence of fatigability with reduced stamina, dyspnea on exertion. Denies any persistent neurological symptoms until about 3 days ago. Denies any sensory loss. Does not have any back pain. Review of Systems Const: Denies: fever(s), chills, body aches or malaise Eyes: Denies: change in vision, eye discomfort or eye redness ENMT: Denies: throat pain, oral sores or ear or mastoid pain Card: Denies: chest pain, edema, pre-syncope or dyspnea on exertion Resp: Denies: dyspnea, productive cough, change in phlegm color or hemoptysis GI: Denies: abdominal pain, nausea, vomiting, diarrhea, constipation, hematochezia or melena : Denies: flank pain, difficulty urinating, urinary frequency or hematuria Musc: Denies: back pain, joint swelling or joint redness Skin/Breast: Denies: rash or new lesions Neuro: Reports: difficulty walking; Denies: numbness in extremities, weakness in extremities, dizziness, confusion, Slurred speech present, difficulty communicating thoughts or seizure-like activity Endo: Denies: polyuria or polydipsia Yahir/Lymph: Denies: easy bleeding or tender lymph nodes All/Imm: Denies: urticaria or tongue swelling Medications/Allergies Home Medications Medication Instructions Recorded Confirmed Last Taken Type lisinopril 20 mg tablet 20 mg PO DAILY 03/24/20 11/11/21 11/11/21 History Allergies Allergy/AdvReac Type Severity Reaction Status Date / Time acetaminophen [From Percocet] Allergy Unknown Unknown Verified 11/21/20 09:08 oxycodone [From Percocet] Allergy Unknown Unknown Verified 11/21/20 09:08 propoxyphene Allergy Unknown Unknown Verified 11/21/20 09:08 [From Darvocet-N] tramadol Allergy Unknown Unknown Verified 11/21/20 09:08 PFSH Acute PFSH: Medical History (Updated 11/11/21 @ 20:15 by Iker Tinsley MD) COVID-19 10/14 Dyspnea on exertion Hypercholesterolemia Hypertension Obstructive sleep apnea Surgical History H/O colonoscopy Removal of 6 precancerous polyps Family History Other Cancer Hypertension Stroke Social History Smoking and tobacco status: current every day smoker smokeless tobacco Alcohol intake: current Alcohol intake frequency: holidays/special occasions only Household members: spouse Housing: House Vitals/I&O/Wt Last Vital Signs Temp 97.5 F L 11/11/21 13:46 Pulse 73 11/11/21 19:45 Resp 25 H 11/11/21 19:45 BP 142/99 11/11/21 19:30 Pulse Ox 97 11/11/21 19:45 11/11/21 11/11/21 11/11/21 06:59 14:59 22:59 Intake Total 1000 / 1000 Balance 1000 / 1000 Weight last 48 hrs Weight 157.85 kg Physical Exam Const: COMMON NORMALS: alert GENERAL APPEARANCE: cooperative NUTRITIONAL APPEARANCE: obese ORIENTATION/CONSCIOUSNESS: Yes awake HENMT: COMMON NORMALS: normocephalic, EAC's normal, Normal external nose present and moist oral mucous membranes HEAD & SCALP: normocephalic NOSE: Normal external nose present EXTERNAL AUDITORY CANAL: EAC's normal Neck/C-Spine: COMMON NORMALS: no meningeal signs Chest: CHEST: Yes Symmetrical chest wall rise Resp: COMMON NORMALS: clear to auscultation bilaterally AUSCULTATION: clear to auscultation bilaterally Cardio: COMMON NORMALS: regular rate, regular rhythm and No murmurs present (Cardio) RATE: regular rate RHYTHM: regular rhythm GI: COMMON NORMALS: Normal to inspection, nondistended, normoactive bowel sounds present, Soft to palpation and non-tender PALPATION: Yes Soft to palpation Extremity: COMMON NORMALS: no pedal edema Neuro: COMMON NORMALS: moves all extremities SENSORIUM/ORIENTATION: Yes alert MENINGEAL SIGNS: Yes no meningeal signs COORDINATION/BALANCE: iywmia-sy-[id number] test normal and vieq-jr-drpd test normal SPEECH: speech normal SENSORY EXAM: Yes extremities (Symmetrical) and Normal double simultaneous stimulation for sensation; No sensory level loss detected MOTOR EXAM: 5/5 motor strength present throughout and Pronator motor function not present OTHER: Nystagmus triggered on leftmost gaze. Alert and following directions without issues. Visual ramírez full to confrontation. Psych: COMMON NORMALS: mental status grossly normal Skin: COMMON NORMALS: no wounds RASHES: no rashes Data : 11/11/21 14:53 11/11/21 14:53 A&P Assessment and plan (1) Nystagmus: Nystagmus triggered on leftmost gaze. He reports about 3 days of episodes of dizziness which make it difficult for him to ambulate, worse today. Denies any otic symptoms. He is afebrile, without leukocytosis, without signs of acute ongoing infection. Does have some neck stiffness, although this was preceding the other symptoms and may not be related to the current findings. Did have COVID-19 in September. Has risk factors of CVA. Discussed with him additional assessment for possible CVA given gradual persistent bothersome nature of the symptoms and risk factors of CVA. Discussed other possibilities, including possible BPPV. Additional assessment with MRI of the brain. Lipid profile TSH, B12, folic acid Will need to continue optimization of risk factors of CVA. In case CVA is found, consider additional assessment including cardiac monitoring given risk factors of atrial fibrillation including DONALD. PT assessment Status: Acute (2) Vertigo: As above Status: Acute (3) Difficulty in walking: Does not appear to have symptoms of GBS. Fall precautions. PT assessment. Status: Acute Plan History of COVID-19 in September with some persistence of symptoms of dyspnea, fatigability History of renal lesions noted incidentally on renal imaging: Should follow-up with primary provider, noted on last ultrasound in September 2020 suggestion for follow-up contrast-enhanced CT abdomen pelvis in 6 months. HTN DONALD: On nightly CPAP Attestations Medical Necessity Statement*: Place in observation for additional assessment of persistent/worsening vertigo with risk factors of CVA Coding Level of Care Code Acute Websphere Message Broker Developer for Chg Fwd Diagnoses Nystagmus H55.00 Vertigo R42 Difficulty in walking R26.2
--- NOTE | 2021-11-11 20:59 | ECG_ITS ---
[facility] Test Date: 2021-11-11 Pat Name: Lee Crawford Department: Room: Gender: Male Traffic Clerk: : 1970 Requested By: Deena Hackett Order Number: [id number] Hanna MD: Antonio Bolaños M.D. Measurements Intervals [place] Rate: 106 P: 65 TN: 212 QRS: -19 QRSD: 90 T: 106 QT: 312 QTc: 416 Interpretive Statements SINUS TACHYCARDIA WITH FIRST DEGREE AV BLOCK ST DEVIATION AND MODERATE T-WAVE ABNORMALITY, CONSIDER LATERAL ISCHEMIA [-0.1+ mV T-WAVE IN I/aVL/V5/V6] Compared to ECG 11/11/2021 18:22:29 First degree AV block now present Possible ischemia now present Sinus bradycardia no longer present T-wave abnormality still present Electronically Signed On 11-11-2021 23:23:39 CDT by Antonio Bolaños M.D. [id number]
[2021-11-11] MEDS: enoxaparin 40 mg/0.4 mL Syringe SUBCUT (22:13)
[2021-11-11 23:25] LABS: Troponin 5 2HR 8.41 ng/L (0-15)
[2021-11-11 23:43] LABS: Troponin 5 2HR Delta 1.41 ABS# (0-10)
[2021-11-12] VITALS (7 sets, daily range): BP systolic 123–149; BP diastolic 73–89; PULSE 57–82; RESP 12–17; TEMP 36.4–36.7; O2SAT 94–98
[2021-11-12 03:47] LABS: Basophils % 0.6 %; Eosinophils # 0.2 10^3/uL (0.0-0.8); Eosinophils % 3.1 %; Hematocrit 46.5 % (42.0-52.0); Hemoglobin 15.7 g/dL (11.7-16.6); Lymphocytes # 2.2 10^3/uL (0.8-4.8); Lymphocytes % 30.2 %; Mean Corpuscular HGB Conc 33.8 g/dL (30.0-36.0); Mean Corpuscular Hemoglobin 30.8 pg (28.0-34.0); Mean Corpuscular Volume 91.2 fl (80-94); Mean Platelet Volume 10.1 fL (7.4-10.4); Monocytes # 0.4 10^3/uL (0.2-0.9); Monocytes % 6.2 %; Neutrophils # 4.26 10^3/uL (1.8-7.7); Neutrophils % 59.5 %; Nucleated Red Blood Cells % 0 %; Platelet Count 190 10^3/cmm (130-400); Red Cell Distribution Width 13.1 % (12.1-15.1); White Blood Count 7.2 10^3/uL (4.0-10.0)
[2021-11-12 04:12] LABS: Alanine Aminotransferase 42 U/L (0-41); Albumin Level 3.8 g/dL (3.5-5.2); Alkaline Phosphatase 94 IU/L (40-130); Aspartate Amino Transferase 19 U/L (0-40); Blood Urea Nitrogen 15 mg/dL (6-20); Calcium 8.5 mg/dL (8.5-10.5); Carbon Dioxide 26 mmol/L (22-29); Chloride 105 mmol/L (98-107); Chol HDL Ratio 5.08 mg/dL (1.0-5.00); Cholesterol 188 mg/dL (0-200); Creatinine Clr Calc Pharmacy 154.9472; Globulin 2.1 g/dL (1.3-4.6); Glomerular Filtration Rate 101.5 mL/min (90-130); Glucose 107 mg/dL (65-115); HDL Cholesterol 37 mg/dL (60-100); LDL Cholesterol Calculated 108 mg/dL (50-129); LDL HDL Ratio 2.92 RATIO (0.00-3.22); Osmolality Calculated 291 mOsm/kg (285-295); Sodium 140 mmol/L (136-145); Thyroid Stimulating Hormone 3.25 uIU/mL (0.27-4.20); Total Bilirubin 0.3 mg/dL (0.15-1.2); Total Protein 5.9 g/dL (6.6-8.7); Triglycerides 217 mg/dL (0-150)
[2021-11-12 04:41] LABS: Folate Level 8.3 ng/mL (4.5-32.2)
[2021-11-12 04:50] LABS: Vitamin B12 373 pg/mL (232-1245)
--- NOTE | 2021-11-12 09:30 | MR_ITS ---
WS: [id number] MRI BRAIN WITHOUT CONTRAST HISTORY: Vertigo, assess possible CVA COMPARISON: CT head 11/11/2021 TECHNIQUE: Diffusion imaging, multiplanar T1, T2 and FLAIR imaging obtained. No evidence for acute infarct or hemorrhage. Nelson-white matter differentiation is normal. No remote or acute infarcts are volume loss. Ventricles and extra-axial spaces are normal. No inferior displacement of cerebellar tonsils. The sella turcica and pituitary gland are unremarkabl e. Dural venous sinuses and port lions of [place] demonstrate no abnormality on this unenhanced studies. Paranasal sinuses: Mild diffuse mucoperiosteal thickening within the sinuses. No air-fluid levels. Mastoid air cells: Normal. Calvarium and scalp: Intact. MR/MR head wo con* [id number] IMPRESSION: 1. No acute infarct or hemorrhage. 2. No significant chronic microvascular ischemic disease. 3. Mild mucoperiosteal thickening throughout the sinuses.
--- NOTE | 2021-11-12 09:37 | PC.CHAP ---
Pastoral Care Encounter/Spiritual Assessment Type of Contact [] Declined passenger tire inspector visit [] Patient/Family/Request visit [] Outpatient visit [] Follow-up visit [] Physician referral [] Code/Alert [x] Routine visit [] Staff referral [] Actively dying [] Patient sleeping [] Family support [] [] Out of room [] Palliative care [] [x] Receiving care in room [] Pre-surgical visit [] Trauma [] Long length of stay [] ICU visit [] Other: Relational/Emotional Strength [x] Patient feels connected with others/family/visitors/staff [] Distress [] Loneliness/isolation [] Abandonment Spirituality of Patient [x] Person of Ligia [] Attends Baptism of their Ligia [x] Believes in Prayer [] Reads Bible or Christian materials [] There are Spiritual issues to be addressed Robotics Mechanic Interventions [x] Prayer [x] Active listening [x] Non-anxious presence [x] Spiritual/emotional support [] Crisis/trauma care [x] Spiritual counseling [] Bereavement support [] Provided bereavement packet [] Provided Bible/devotional materials [] Provided toy/stuffed animal, coloring book to patient or family member [] Provided Communion [] Anointing/[place] [] Salvation [x] Completed spiritual assessment [] Other: Impact on Illness or Injury [] Angry [] Fearful [x] Anxious [] Often cries [] Exhaustion [] Unable to work [] Unable to attend hindu [] Unable to walk/stand [] Unable to read [] Unable to drive [] Unable to eat/drink [] Unable to sleep [] Unable to be with family [] Patient intubated [] Other: Summary heart doesn't know about tratment checking with doctor well go home soon Time spent with patient 10 mins
--- NOTE | 2021-11-12 14:27 | P.PN_ITS ---
Subjective Subjective: seen today no acute events overnight awaiting mri today Vitals/I&O/Wt Last Vital Signs Temp 97.8 F 11/12/21 12:00 Pulse 71 11/12/21 12:00 Resp 15 11/12/21 12:00 BP 136/76 11/12/21 12:00 Pulse Ox 96 11/12/21 12:00 11/11/21 11/12/21 11/12/21 22:59 06:59 14:59 Intake Total 1000 / 1000 360 / 1360 240 / 240 Output Total 0 / 0 Balance 1000 / 1000 360 / 1360 240 / 240 Weight last 48 hrs Weight 157.85 kg Physical Exam Narrative: Middle-age male, morbidly obese resting comfortably in his bed Abdomen central obesity, no guarding or rigidity no signs of peritonitis S1, S2 no murmur or signs of heart failure No audible stridor or wheezing EOMI, PERRLA No neurological deficit Awake alert oriented x3 GCS 15 Appropriate mood and affect Cooperative and pleasant during my evaluation Data : 11/12/21 03:19 11/12/21 03:19 A&P Assessment and plan (1) Difficulty in walking: Status: Acute (2) Vertigo: Status: Acute (3) Nystagmus: Status: Acute (4) Gait instability: Status: Acute (5) Morbid obesity: Status: Acute (6) Obstructive sleep apnea: Status: Acute (7) Hypertension: Status: Acute Plan (1) Nystagmus: Nystagmus triggered on leftmost gaze.? He reports about 3 days of episodes of dizziness which make it difficult for him to ambulate, worse today.? Denies any otic symptoms.? He is afebrile, without leukocytosis, without signs of acute ongoing infection.? Does have some neck stiffness, although this was preceding the other symptoms and may not be related to the current findings.? Did have COVID-19 in September.? Has risk factors of CVA. Discussed with him additional assessment for possible CVA given gradual persistent bothersome nature of the symptoms and risk factors of CVA. Discussed other possibilities, including possible BPPV. Additional assessment with MRI of the brain. Lipid profile TSH, B12, folic acid Will need to continue optimization of risk factors of CVA.? In case CVA is found, consider additional assessment including cardiac monitoring given risk fa ctors of atrial fibrillation including DONALD. PT assessment AWAITING MRI ?Status:?Acute (2) Vertigo: As above ?Status:?Acute (3) Difficulty in walking: Does not appear to have symptoms of GBS. Fall precautions. PT assessment. ?Status:?Acute Plan History of COVID-19 in September with some persistence of symptoms of dyspnea, fatigability History of renal lesions noted incidentally on renal imaging: Should follow-up with primary provider, noted on last ultrasound in September 2020 suggestion for follow-up contrast-enhanced CT abdomen pelvis in 6 months. HTN DONALD: On nightly CPAP Attestations Medical Necessity Statement*: Place in observati on for additional assessment of pers istent/worsening v ertigo with risk f actors of CVA Coding Level of Care Code Acute Senior Data Scientist for Chg Fwd Diagnoses Difficulty in walking R26.2 Vertigo R42 Nystagmus H55.00 Gait instability R26.81 Morbid obesity E66.01 Obstructive sleep apnea G47.33 Hypertension I10
[2021-11-12] MEDS: enoxaparin 40 mg/0.4 mL Syringe SUBCUT (21:21)
[2021-11-13] VITALS: BP 124/86; PULSE 63; RESP 12; TEMP 36.5; O2SAT 95
[2021-11-13 04:00] VITALS: BP 120/64; PULSE 59; RESP 12; TEMP 36.4; O2SAT 97
[2021-11-13 06:00] LABS: Basophils # 0.1 10^3/uL (0.0-0.1); Basophils % 1.1 %; Eosinophils # 0.2 10^3/uL (0.0-0.8); Eosinophils % 3.4 %; Hematocrit 43.7 % (42.0-52.0); Hemoglobin 15.1 g/dL (11.7-16.6); Lymphocytes % 37.9 %; Mean Corpuscular HGB Conc 34.6 g/dL (30.0-36.0); Mean Corpuscular Hemoglobin 30.8 pg (28.0-34.0); Mean Platelet Volume 10.3 fL (7.4-10.4); Monocytes # 0.3 10^3/uL (0.2-0.9); Monocytes % 5.3 %; Neutrophils # 2.77 10^3/uL (1.8-7.7); Neutrophils % 52.1 %; Nucleated Red Blood Cells % 0 %; Platelet Count 164 10^3/cmm (130-400); Red Blood Count 4.91 10^6/uL (4.1-5.3); Red Cell Distribution Width 13.1 % (12.1-15.1); White Blood Count 5.3 10^3/uL (4.0-10.0)
[2021-11-13 06:21] LABS: Alanine Aminotransferase 40 U/L (0-41); Albumin Level 3.5 g/dL (3.5-5.2); Alkaline Phosphatase 87 IU/L (40-130); Blood Urea Nitrogen 16 mg/dL (6-20); Calcium 8.4 mg/dL (8.5-10.5); Carbon Dioxide 26 mmol/L (22-29); Chloride 104 mmol/L (98-107); Creatinine Clr Calc Pharmacy 154.9472; Globulin 2.2 g/dL (1.3-4.6); Glomerular Filtration Rate 101.5 mL/min (90-130); Glucose 166 mg/dL (65-115); Osmolality Calculated 291 mOsm/kg (285-295); Sodium 138 mmol/L (136-145); Total Bilirubin 0.2 mg/dL (0.15-1.2); Total Protein 5.7 g/dL (6.6-8.7)
[2021-11-13 06:31] LABS: Anion Gap 11.8 (5-19); Aspartate Amino Transferase 24 U/L (0-40); Potassium 3.8 mmol/L (3.5-5.1)
[2021-11-13 08:00] VITALS: BP 145/100; PULSE 60; RESP 18; TEMP 36.4; O2SAT 98
[2021-11-13 08:44] VITALS: PULSE 69; O2SAT 96
--- NOTE | 2021-11-13 10:30 | PM.DCS ---
Discharge Providers Date of Admission: 11/11/21 19:23 Date of Discharge: November 13, 2021 Attending Provider at Admission: Iker Tinsley Attending Provider at Discharge: Denise Moreland MD Primary Care Provider: Cameron Campbell MD Diagnoses at Discharge Discharge Diagnosis (1) Difficulty in walking: Status: Acute (2) Vertigo: Status: Acute (3) Nystagmus: Status: Acute (4) Gait instability: Status: Acute (5) Morbid obesity: Status: Acute (6) Obstructive sleep apnea: Status: Acute (7) Hypertension: Status: Acute Reason for Visit Reason for Visit: sent by doctor for [employer] Brief History: 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 He had a brief headache over the left eye 3 days back, but denies any persistent headache, has had some left-sided neck tenderness and neck feeling stiff for a while, but denies any direct injury.? Denies any fever or chills.? Has no photosensitivity.? Denies any earache or ear drainage, no hearing changes.? Denies any rashes or tick bites. Reports after COVID-19 had some persistence of fatigability with reduced stamina, dyspnea on exertion.? Denies any persistent neurological symptoms until about 3 days ago. Denies any sensory loss.? Does not have any back pain. Hospital Course Hospital Course Patient was admitted for up and it was worse on admission. MRI was negative for any intracranial pathology. Patient was asymptomatic during hospital stay. He felt better. Discussed with Dr. Campbell his primary care doctor. Dr. Campbell we will set him up with vestibular testing and I will give him referral to ENT at discharge. MRI did show some thickening in the sinuses. Patient was advised not to drive until cleared by ENT and his primary care doctor. He was started on meclizine 25 mg 3 times daily as needed. His blood pressure at discharge was 145/100 which he attributed to having an argument earlier over the phone with somebody. Otherwise his blood pressure remained stable during hospital stay. He does wear CPAP at night and was encouraged to continue to do so. I personally discussed his case with his primary care doctor. He will discharge patient home in stable condition. He is in agreement with the above plan. Physical Exam Narrative: Middle-age Caucasi an male, morbidly obese resting comf ortably in his bed Abdomen central o besity, no guardin g or rigidity no s igns of peritoniti s S1, S2 no murmur or signs of heart failure No audibl e stridor or wheez ing EOMI, PERRLA N o neurological def icit Awake alert o riented x3 GCS 15 Appropriate mood a nd affect Cooperat bharat and pleasant d uring my evaluatio n Discharge Data Studies Completed and Pending Completed Studies During Hospitalization Category Date Time Status CT head wo con* [id number] Urgent Cat Scan 11/11/21 14:58 Completed CTA head neck [CT angio headneck* [id number]] Urgent Cat Scan 11/11/21 14:58 Completed XR chest 1V portable [id number] Stat Exams 11/11/21 14:58 Completed MR head wo con* [id number] Urgent MRI 11/12/21 09:30 Completed Pending at discharge Category Date Time Status Complete Blood Count w/Auto AM LABS Lab 11/14/21 04:00 Ordered Comprehensive Metabolic Panel AM LABS Lab 11/14/21 04:00 Ordered Radiology Impressions Chest X-Ray 11/11/21 14:58 IMPRESSION: No acute chest abnormality. Head CT 11/11/21 14:58 IMPRESSION: Negative for intracranial hemorrhage or mass effect. Head/Neck CTA 11/11/21 14:58 IMPRESSION: Patent neck carotid and vertebral arteries REFERENCES: NASCET CRITERIA. The degree of internal carotid artery stenosis is based on NASCET criteria. Normal is no stenosis. Mild is less than 50% stenosis. Moderate is 50-69% stenosis. Severe is 70% to 99% stenosis. Total occlusion is no detectable patent lumen. Head MRI 11/12/21 09:30 IMPRESSION: 1. No acute infarct or hemorrhage. 2. No significant chronic microvascular ischemic disease. 3. Mild mucoperiosteal thickening throughout the sinuses. Laboratory Results WBC 5.3 10^3/uL (4.0-10.0) 11/13/21 05:20 RBC 4.91 10^6/uL (4.1-5.3) 11/13/21 05:20 Hgb 15.1 g/dL (11.7-16.6) 11/13/21 05:20 Hct 43.7 % (42.0-52.0) 11/13/21 05:20 MCV 89.0 fl (80-94) 11/13/21 05:20 MCH 30.8 pg (28.0-34.0) 11/13/21 05:20 MCHC 34.6 g/dL (30.0-36.0) 11/13/21 05:20 RDW 13.1 % (12.1-15.1) 11/13/21 05:20 Plt Count 164 10^3/cmm (130-400) 11/13/21 05:20 MPV 10.3 fL (7.4-10.4) 11/13/21 05:20 Neut % (Auto) 52.1 % 11/13/21 05:20 Lymph % (Auto) 37.9 % 11/13/21 05:20 [place] % (Auto) 5.3 % 11/13/21 05:20 Eos % (Auto) 3.4 % 11/13/21 05:20 Baso % (Auto) 1.1 % 11/13/21 05:20 Neut # (Auto) 2.77 10^3/uL (1.8-7.7) 11/13/21 05:20 Lymph # (Auto) 2.0 10^3/uL (0.8-4.8) 11/13/21 05:20 [place] # (Auto) 0.3 10^3/uL (0.2-0.9) 11/13/21 05:20 Eos # (Auto) 0.2 10^3/uL (0.0-0.8) 11/13/21 05:20 Baso # (Auto) 0.1 10^3/uL (0.0-0.1) 11/13/21 05:20 Nucleated RBC % (auto) 0 % 11/13/21 05:20 Nucleated RBCs # 0.0 /100WBC 11/13/21 05:20 Sodium 138 mmol/L (136-145) 11/13/21 05:20 Potassium 3.8 mmol/L (3.5-5.1) 11/13/21 05:20 Chloride 104 mmol/L (98-107) 11/13/21 05:20 Carbon Dioxide 26 mmol/L (22-29) 11/13/21 05:20 Anion Gap 11.8 (5-19) 11/13/21 05:20 BUN 16 mg/dL (6-20) 11/13/21 05:20 Creatinine 0.8 mg/dL (0.7-1.2) 11/13/21 05:20 GFR Calculation 101.5 mL/min (90-130) 11/13/21 05:20 Glucose 166 mg/dL (65-115) H 11/13/21 05:20 Calculated Osmolality 291 mOsm/kg (285-295) 11/13/21 05:20 Calcium 8.4 mg/dL (8.5-10.5) L 11/13/21 05:20 Total Bilirubin 0.2 mg/dL (0.15-1.2) 11/13/21 05:20 AST 24 U/L (0-40) 11/13/21 05:20 ALT 40 U/L (0-41) 11/13/21 05:20 Alkaline Phosphatase 87 IU/L (40-130) 11/13/21 05:20 Troponin T Baseline 7 ng/L (0-15) 11/11/21 14:53 Troponin T 120 Minute 8.41 ng/L (0-15) 11/11/21 22:45 Delta Troponin T 1.41 ABS# (0-10) 11/11/21 22:45 Total Protein 5.7 g/dL (6.6-8.7) L 11/13/21 05:20 Albumin 3.5 g/dL (3.5-5.2) 11/13/21 05:20 Globulin 2.2 g/dL (1.3-4.6) 11/13/21 05:20 Triglycerides 217 mg/dL (0-150) H 11/12/21 03:19 Cholesterol 188 mg/dL (0-200) 11/12/21 03:19 LDL Cholesterol, Calc 108 mg/dL (50-129) 11/12/21 03:19 HDL Cholesterol 37 mg/dL (60-100) L 11/12/21 03:19 LDL/HDL Ratio 2.92 RATIO (0.00-3.22) 11/12/21 03:19 Cholesterol/HDL Ratio 5.08 mg/dL (1.0-5.00) H 11/12/21 03:19 Lipase 30 U/L (13-60) 11/11/21 14:53 Vitamin B12 373 pg/mL (232-1245) 11/12/21 03:19 Folate 8.3 ng/mL (4.5-32.2) 11/12/21 03:19 TSH 3.25 uIU/mL (0.27-4.20) 11/12/21 03:19 Urine Color Dark yellow (Yellow) 11/11/21 15:44 Urine Appearance Clear (CLEAR) 11/11/21 15:44 Urine pH 7 (5-7) 11/11/21 15:44 Ur Specific [place] 1.010 (1.005-1.030) 11/11/21 15:44 Urine Protein Neg (Negative) 11/11/21 15:44 Urine Glucose (UA) Norm (Normal) 11/11/21 15:44 Urine Ketones Negative (Negative) 11/11/21 15:44 Urine Blood Neg (Negative) 11/11/21 15:44 Urine Nitrate Negative (Negative) 11/11/21 15:44 Urine Bilirubin Neg (Negative) 11/11/21 15:44 Urine Urobilinogen Norm mg/dL (Negative) 11/11/21 15:44 Ur Leukocyte Esterase Negative (Negative) 11/11/21 15:44 Vitals Last Vital Signs Temp 97.5 F L 11/13/21 08:00 Pulse 69 11/13/21 08:44 Resp 18 11/13/21 08:00 BP 145/100 11/13/21 08:00 Pulse Ox 96 11/13/21 08:44 Discharge Plan Discharge Patient Disposition: Home Condition: Stable Prescriptions: New meclizine 25 mg tablet 25 mg PO TID PRN (Reason: dizziness) 5 Days Qty: 14 0RF Continued lisinopril 20 mg tablet 20 mg PO DAILY 0RF Discharge Orders: Discharge Order (Routine); Ordered 11/13/21 Ordered By: Denise Moreland Referrals: Saúl Barrow MD [Physician] - 11/18/21 1:00 pm Cameron Campbell MD [Primary Care Provider] - 11/17/21 1:30 pm Discharge Diet: Low Salt Discharge Activity: Limit activity as instructed and Return to work/school after cleared by PCP/Specialist Patient Instructions: Meclizine (By mouth), Vertigo (DC), Benign Paroxysmal Positional Vertigo (DC), Opioid Safety Activity Restrictions/Additional Instructions: Please do not drive until cleared by ENT doctor and your primary care physician. Continue to use your CPAP at night time. I have talked to Dr. Campbell regarding your condition. He will set you up with physical therapy and vestibular testing. Your MRI result was normal. Dr. Campbell will follow up with you as outpatient. Stand Alone Forms: Work/School Release Discharge Attestations Time Spent in Discharge Care*: greater than 30 min Quality Metrics Clinical Quality Measures [ No reported AMI, CVA or VTE this stay] Coding Level of Care Code Acute Chg FW DC note Diagnoses Difficulty in walking R26.2 Vertigo R42 Nystagmus H55.00 Gait instability R26.81 Morbid obesity E66.01 Obstructive sleep apnea G47.33 Hypertension I10
[2021-11-13 12:00] VITALS: BP 137/86; PULSE 66; RESP 18; TEMP 36.4; O2SAT 97
--- NOTE | 2021-11-13 12:41 | PC.PT ---
Pt was seen bedside at physician's request for BPPV. Pt had negative VBAT's right and left but had pain in the neck on the left side. Pt had negative coordination issues. Pt did have end range nystagmus with looking right and left. Pt had positive left side BPPV with constant rotational nystagmus that did not stop. Pt was taken through the Lexi maneuver for the left by rolling right. Pt was checked for right side Hallpike test and was negative for dizziness but had constant rotational nystagmus indicative of BPPV. Pt was taken through the Lexi for the right side by rolling left. Pt stood up and stated he felt different and walked around and felt like there was a night and day difference. The nurse was spoken with. Pt educated on the cause of dizziness from possible BPPV. 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 Pt was given this therapist contact info to follow up with if the physician orders outpatient PT for BPPV.
[2021-11-13 14:21] VITALS: BP 137/86; PULSE 66; RESP 18; TEMP 36.4; O2SAT 97
--- NOTE | 2021-11-13 14:22 | PC.NURSE ---
Discharge Note Patient discharged to home via private vehicle accompanied by . Discharge instructions reviewed with patient and/or sales utility representative. Mobile pharmacy medications and/or prescriptions provided. Belongings/home medications returned.
== END 2021-11-13 13:00 | disposition home or self-care (01) ==
LOC: ER 15:06 → MEDSURG 20:06
PROVIDERS: Admitting Provider Internal Medicine; Emergency Provider Emergency Medicine; PCP Family Medicine; Visit Provider Internal Medicine
DX: H55.00 Unspecified nystagmus (principal); R26.2 Difficulty in walking, not elsewhere classified; R42 Dizziness and giddiness; E66.01 Morbid (severe) obesity due to excess calories; Z68.43 Body mass index [BMI] 50.0-59.9, adult; G47.33 Obstructive sleep apnea (adult) (pediatric); I10 Essential (primary) hypertension; Z86.16 Personal history of COVID-19; E78.5 Hyperlipidemia, unspecified; Z86.73 Personal history of transient ischemic attack (TIA), and cerebral infarction without residual deficits; E78.00 Pure hypercholesterolemia, unspecified; F17.290 Nicotine dependence, other tobacco product, uncomplicated
CPT/HCPCS: 36415; 70450; 70496; 70498; 70551; 71045; 80053; 80061; 81003; 82607; 82746; 83690; 84443; 84484; 85025; 93005; 94664; 94760; 96360; 96372; 97161; 99285; G0378; J1650; J7030; Q9967

== ENCOUNTER 2021-11-17 06:00 | Outpatient (RCR) | payer OTHER, SELFPAY | END 2021-11-22 23:59 | disposition home or self-care (01) | LOC: SPT 06:00 | PROVIDERS: PCP Family Medicine; Referring Provider Family Medicine; Visit Provider Family Medicine | DX: R55 Syncope and collapse (principal) | CPT/HCPCS: 95992; 97162 ==

== ENCOUNTER 2022-05-23 03:56 | Emergency (ER) | payer OTHER, SELFPAY ==
[2022-05-23 04:14] VITALS: BP 153/96; PULSE 67; RESP 16; TEMP 36.7; O2SAT 99; BMI 58.1
--- NOTE | 2022-05-23 04:17 | ECG_ITS ---
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 Measurements Intervals [place] Rate: 64 P: 41 CO: 153 QRS: 48 QRSD: 85 T: 98 QT: 420 QTc: 434 Interpretive Statements SINUS RHYTHM NONSPECIFIC T-WAVE ABNORMALITY Compared to ECG 11/11/2021 20:37:02 Sinus tachycardia no longer present First degree AV block no longer present Possible ischemia no longer present T-wave abnormality still present Electronically Signed On 05-23-2022 11:19:26 STEAM TRAP WORKER by Antonio Bolaños M.D. [id number]
--- NOTE | 2022-05-23 04:21 | XRR_ITS ---
PROCEDURE INFORMATION: Exam: XR Chest Exam date and time: 05/23/2022 4:30 AM Age: 51 years old Clinical indication: Other: Dizzy, nausea, diaphoresis TECHNIQUE: Imaging protocol: Radiologic exam of the chest. Views: 1 view. COMPARISON: CR XR chest 1V portable [id number] 11/11/2021 3:10 PM FINDINGS: Lungs: No CHF/pulmonary edema. Visible lungs appear essentially clear. Pleural spaces: No visible pneumothorax. No definite pleural fluid. Heart/Mediastinum: Heart size is within normal limits. Bones/joints: No significant acute finding. XR/XR chest 1V portable [id number] IMPRESSION: 1. No definite CHF or pneumonia. 2. Other findings discussed above.
--- NOTE | 2022-05-23 04:21 | CTR_ITS ---
PROCEDURE INFORMATION: Exam: CT Head Without Contrast Exam date and time: 05/23/2022 5:13 AM Age: 51 years old Clinical indication: Dizziness; Additional info: Dizzy TECHNIQUE: Imaging protocol: Computed tomography of the head without contrast. Radiation optimization: All CT scans at this facility use at least one of these dose optimization techniques: automated exposure control; mA and/or kV adjustment per patient size (includes targeted exams where dose is matched to clinical indication); or iterative reconstruction. Other protocol: This patient has received 2 known CTs and 0 known cardiac nuclear medicine studies in the 12 months prior to the current study. COMPARISON: CT head wo 11/11/2021 4:50 PM RADIATION DOSE METRICS: Total DLP (mGy-cm): 1305.9 FINDINGS: Brain: No acute intracranial hemorrhage or mass effect. There is very mild decreased attenuation in the periventricular white matter, likely from microvascular disease. No definite acute infarct by CT. MRI could be more sensitive/specific for detection, as clinically directed. Cerebral ventricles: Ventricle size is normal for age. Paranasal sinuses: Moderate mucosal thickening in the maxillary sinuses. These sinuses appear relatively small, probably congenitally. The appearance is similar to the prior exam. Included paranasal sinuses otherwise appear essentially clear. Mastoid air cells: No significant acute finding. Bones/joints: No definite acute skull fracture. Soft tissues: No significant acute finding. Vasculature: Vascular calcifications in the internal carotid arteries. CT/CT head wo con* [id number] IMPRESSION: 1. No acute intracranial hemorrhage or mass effect. 2. No definite acute infarct by CT, see above. 3. Other findings discussed above.
--- NOTE | 2022-05-23 04:26 | ED_ITS ---
Documented by User: Chino Singh DO 05/23/22 19:35 HPI - Dizziness General: Chief Complaint: Dizziness Stated Complaint: dizzy, cold sweats, nausea Time Seen by Provider: 05/23/22 04:14 Source: patient and family History of Present Illness: HPI Narrative: 51-year-old male who awoke this morning with complaints of dizziness, cold sweats, nausea. He did not throw up. His head does not hurt. He experienced no chest discomfort. His had similar symptoms a couple of days ago as did he, but they had been running a generator in their home as it had been out of power. When they left the home at that point, both of their symptoms resolved. His symptoms returned this morning, but hers did not. He denies any fever. No vision problems, language problems, speech problems, or weakness. MD elicited complaint: dizziness and lightheadedness Pertinent past history: inner ear problems Onset (ago): minute(s) Timing: sudden onset Severity: moderate Description: sense of movement, room spinning and lightheadedness History of similar symptoms: Yes Exacerbating factors: change in body position Relieving factors: remaining still Associated symptoms: Reports chills, diaphoresis and nausea; Denies chest pain, cough, ear pressure, fevers/chills, headache(s), short of breath, vomiting or weakness Associated neuro symptoms: Reports gait changes; Deny confusion, difficulty speaking, dysphagia, diplopia, extremity weakness, facial numbness, facial weakness, numbness in extremities or visual changes Stroke scale total: 0 Review of Systems Const: Reports: chills and diaphoresis; Denies: fever(s) Eyes: Denies: change in vision ENMT: Denies: throat pain Card: Denies: chest pain Resp: Denies: dyspnea, productive cough or non-productive cough GI: Reports: nausea; Denies: abdominal pain, vomiting or dysphagia Neuro: Denies: headache(s), numbness in extremities or confusion PFS ED PFSH: Medical History COVID-19 10/14 Dyspnea on exertion Hypercholesterolemia Hypertension Obstructive sleep apnea Surgical History H/O colonoscopy Removal of 6 precancerous polyps Family History Other Cancer Hypertension Stroke Social History Smoking and tobacco status: current every day smoker smokeless tobacco Alcohol intake: current Alcohol intake frequency: holidays/special occasions only Household members: spouse Housing: House Physical Exam Const: COMMON NORMALS: no acute distress and alert GENERAL APPEARANCE: cooperative; not ill appearing and not frail appearing NUTRITIONAL APPEARANCE: obese ORIENTATION/CONSCIOUSNESS: Yes oriented to person, Yes oriented to place and Yes oriented to time HENMT: COMMON NORMALS: normocephalic, atraumatic and Normal external nose present HEAD & SCALP: normocephalic and atraumatic FACE & SINUS: normal facial exam and face symmetric NOSE: Normal external nose present Eye: COMMON NORMALS: Equal, round and reactive pupils present and EOMs intact bilaterally PUPIL: Yes Equal, round and reactive pupils present Neck/C-Spine: COMMON NORMALS: full ROM Chest: CHEST: Yes Symmetrical chest wall rise Resp: COMMON NORMALS: normal respiratory effort, No use of accessory muscles and clear to auscultation bilaterally AUSCULTATION: clear to auscultation bilaterally Cardio: COMMON NORMALS: regular rate and regular rhythm RATE: regular rate RHYTHM: regular rhythm GI: COMMON NORMALS: Normal to inspection, nondistended, normoactive bowel sounds present, Soft to palpation and non-tender PALPATION: Yes Soft to palpation Extremity: GENERAL: Yes edema (Mild) Neuro: SHANON COMA SCALE: document GCS findings Shanon coma scale eye opening: Spontaneous Shanon coma scale verbal response: Orientated Shanon coma scale motor response: Obey commands [place] coma scale total score: 15 COMMON NORMALS: CN's II-XII intact bilaterally SENSORIUM/ORIENTATION: Yes alert, Yes oriented to person, Yes oriented to place and Yes oriented to time COORDINATION/BALANCE: [id number]-kb-[id number] test normal and fxmr-qa-yqdt test normal SPEECH: speech normal GAIT: Yes Unable to assess gait MOTOR EXAM: 5/5 motor strength present throughout and Normal motor muscle tone present throughout COORDINATION: knjiho-ks-cctk test normal and wqrf-du-yvdz test normal Psych: COMMON NORMALS: mental status grossly normal and cooperative Skin: COMMON NORMALS: no rashes or lesions noted GENERAL SKIN EXAM: no rashes or lesions noted Course Vital Signs: Vital signs: Vital Signs Temperature 98.1 F 05/23/22 04:14 Pulse Rate 66 05/23/22 08:32 Respiratory Rate 16 05/23/22 08:32 Blood Pressure 143/92 05/23/22 08:32 Pulse Oximetry 97 05/23/22 08:32 Oxygen Delivery Me thod 05/23/22 06:23 MDM - Dizziness Medical Decision Making 51-year-old gentleman who is dizzy. It sounds somewhat vertiginous on history. He has been mildly hypertensive, but blood pressure currently 133/85. Heart rate 75. EKG shows a sinus rhythm with normal axis and intervals rate of [address] changes. His chest x-ray appears negative to me. Awaiting CT of the head official read. His first troponin is 10. He is awaiting a second troponin and CT. Carboxyhemoglobin is normal. He seems a bit worse after Ativan, meclizine, and Zofran. Were giving him some more Zofran as he is nauseated. He will be checked out to the oncoming physician Lab Data 05/23/22 04:45 05/23/22 04:45 Radiology Impressions Chest X-Ray 05/23/22 04:21 IMPRESSION: 1. No definite CHF or pneumonia. 2. Other findings discussed above. Head CT 05/23/22 04:21 IMPRESSION: 1. No acute intracranial hemorrhage or mass effect. 2. No definite acute infarct by CT, see above. 3. Other findings discussed above. Laboratory Results WBC 5.0 10^3/uL (4.0-10.0) 05/23/22 04:45 RBC 5.29 10^6/uL (4.1-5.3) 05/23/22 04:45 Hgb 15.9 g/dL (11.7-16.6) 05/23/22 04:45 Hct 48.6 % (42.0-52.0) 05/23/22 04:45 MCV 91.9 fl (80-94) 05/23/22 04:45 MCH 30.1 pg (28.0-34.0) 05/23/22 04:45 MCHC 32.7 g/dL (30.0-36.0) 05/23/22 04:45 RDW 13.0 % (12.1-15.1) 05/23/22 04:45 Plt Count 167 10^3/cmm (130-400) 05/23/22 04:45 MPV 9.7 fL (7.4-10.4) 05/23/22 04:45 Neut % (Auto) 63.3 % 05/23/22 04:45 Lymph % (Auto) 26.5 % 05/23/22 04:45 [place] % (Auto) 5.4 % 05/23/22 04:45 Eos % (Auto) 3.4 % 05/23/22 04:45 Baso % (Auto) 1.0 % 05/23/22 04:45 Neut # (Auto) 3.16 10^3/uL (1.8-7.7) 05/23/22 04:45 Lymph # (Auto) 1.3 10^3/uL (0.8-4.8) 05/23/22 04:45 [place] # (Auto) 0.3 10^3/uL (0.2-0.9) 05/23/22 04:45 Eos # (Auto) 0.2 10^3/uL (0.0-0.8) 05/23/22 04:45 Baso # (Auto) 0.1 10^3/uL (0.0-0.1) 05/23/22 04:45 Nucleated RBC % (auto) 0 % 05/23/22 04:45 Nucleated RBCs # 0.0 /100WBC 05/23/22 04:45 Specimen Type Arterial 05/23/22 05:03 Sample Site Radial, right 05/23/22 05:03 Kevin Test Pos 05/23/22 05:03 A-a O2 Gradient 1.5 mmHg (5-10) L 05/23/22 05:03 Hematocrit 51.8 % (42-52) 05/23/22 05:03 Hgb O2 Saturation 95.3 % (95-100) 05/23/22 05:03 Carboxyhemoglobin 1.3 %THgb (0.4-20.1) 05/23/22 05:03 Methemoglobin 0.6 % (0.4-1.5) 05/23/22 05:03 Total Hemoglobin 16.9 g/dL (14-18) 05/23/22 05:03 O2 Delivery Device None 05/23/22 05:03 FiO2 21.0 % 05/23/22 05:03 Fusing Line Inspector ID [email or web address] 05/23/22 05:03 Sodium 136 mmol/L (136-145) 05/23/22 04:45 Potassium 4.3 mmol/L (3.5-5.1) 05/23/22 04:45 Chloride 101 mmol/L (98-107) 05/23/22 04:45 Carbon Dioxide 27 mmol/L (22-29) 05/23/22 04:45 Anion Gap 12.3 (5-19) 05/23/22 04:45 BUN 20 mg/dL (6-20) 05/23/22 04:45 Creatinine 0.9 mg/dL (0.7-1.2) 05/23/22 04:45 GFR Calculation 88.6 mL/min (90-130) L 05/23/22 04:45 Glucose 128 mg/dL (65-115) H 05/23/22 04:45 Calculated Osmolality 286 mOsm/kg (285-295) 05/23/22 04:45 Calcium 8.9 mg/dL (8.5-10.5) 05/23/22 04:45 Magnesium 2.1 mg/dL (1.7-2.3) 05/23/22 04:45 Total Bilirubin 0.4 mg/dL (0.15-1.2) 05/23/22 04:45 AST 27 U/L (0-40) 05/23/22 04:45 ALT 49 U/L (0-41) H 05/23/22 04:45 Alkaline Phosphatase 89 U/L (40-130) 05/23/22 04:45 Troponin T Baseline 10 ng/L (0-15) 05/23/22 04:45 Troponin T 120 Minute 8.79 ng/L (0-15) 05/23/22 06:09 Delta Troponin T -1.21 ABS# (0-10) L 05/23/22 06:09 NT-Pro-B Natriuret Pep 51 pg/mL (0-125) 05/23/22 04:45 Total Protein 6.4 g/dL (6.6-8.7) L 05/23/22 04:45 Albumin 3.7 g/dL (3.5-5.2) 01/29/23 04:45 Globulin 2.7 g/dL (1.3-4.6) 05/23/22 04:45 Discharge Plan Discharge Patient Disposition: Home Clinical Impression: Vertigo, Hypertension Condition: Stable Prescriptions: No Action lisinopril 20 mg tablet 20 mg PO DAILY Discharge Orders: Discharge ED (Routine); Ordered 05/23/22 Ordered By: Carol Ann Boo Referrals: Cameron Campbell MD [Primary Care Provider] - Discharge Diet: Usual diet Discharge Activity: Increase activity as tolerated Patient Instructions: Opioid Safety, Pain Management Activity Restrictions/Additional Instructions: Use caution with any activity where an episode of dizziness could cause injury to yourself or those around you - including driving, climbing ladders, using power tools. Return to the ED if new or worse symptoms. Follow up with Dr. Campbell to discuss further testing and treatment. Discuss need for evaluation of the blood vessels in your neck for potential blockage as a cause of your dizziness as we did not get the MRI/MRA today. Coding Level of Care Code ED Fitness Assistant for Chg Fwd Exam Comprehensive Documented by User: Carol Ann Boo MD 05/23/22 08:24 HPI - Dizziness General: Chief Complaint: Dizziness Stated Complaint: dizzy, cold sweats, nausea Time Seen by Provider: 05/23/22 04:14 [facility] ED PFSH: Medical History COVID-19 10/14 Dyspnea on exertion Hypercholesterolemia Hypertension Obstructive sleep apnea Surgical History H/O colonoscopy Removal of 6 precancerous polyps Family History Other Cancer Hypertension Stroke Social History Smoking and tobacco status: current every day smoker smokeless tobacco Alcohol intake: current Alcohol intake frequency: holidays/special occasions only Household members: spouse Housing: House Physical Exam Neuro: SHANON COMA SCALE: document GCS findings [place] coma scale total score: 15 Course Vital Signs: Vital signs: Vital Signs Temperature 98.1 F 05/23/22 04:14 Pulse Rate 66 05/23/22 08:32 Respiratory Rate 16 05/23/22 08:32 Blood Pressure 143/92 05/23/22 08:32 Pulse Oximetry 97 05/23/22 08:32 Oxygen Delivery Me thod 05/23/22 06:23 [facility] - Dizziness Medical Decision Making 51-year-old gentleman who is dizzy. It sounds somewhat vertiginous on history. He has been mildly hypertensive, but blood pressure currently 133/85. Heart rate 75. EKG shows a sinus rhythm with normal axis and intervals rate of [address] changes. His chest x-ray appears negative to me. Awaiting CT of the head official read. His first troponin is 10. He is awaiting a second troponin and CT. Carboxyhemoglobin is normal. He seems a bit worse after Ativan, meclizine, and Zofran. Were giving him some more Zofran as he is nauseated. He will be checked out to the oncoming physician I assumed care of this patient from Dr. Singh. The patient reported feeling better on my re-evaluation, but still had episodes of dizziness. he does recall being admitted for dizziness in October, but says that this is different. He did not have the cold sweats and nausea with the prior episode. He says that this episode ONLY happens when he is laying down - and he can turn his head to the right to cause the symptoms. He reports that with the prior episode, he didn't so much feel dizzy as drunk and off balance. He saw PT and had treatment with the Lexi maneuver, and saw his chiropractor to have his neck adjusted and the symptoms went away. He says that Lexi won't work this time - he is sure of that. We discussed stroke and vertebral artery occlusion as causes of dizziness and initially he agreed to an MRI/MRA - then he decided that he didn't want to do that and would rather just go home to follow up with Dr. Campbell. He understands that I recommend further evaluation and that we could easily be m issing a stroke. He understands and still prefers to go home - so he will be discharged with return precautions and close follow up. was also present for this discussion. Lab Data 05/23/22 04:45 05/23/22 04:45 Radiology Impressions Chest X-Ray 05/23/22 04:21 IMPRESSION: 1. No definite CHF or pneumonia. 2. Other findings discussed above. Head CT 05/23/22 04:21 IMPRESSION: 1. No acute intracranial hemorrhage or mass effect. 2. No definite acute infarct by CT, see above. 3. Other findings discussed above. Laboratory Results WBC 5.0 10^3/uL (4.0-10.0) 05/23/22 04:45 RBC 5.29 10^6/uL (4.1-5.3) 05/23/22 04:45 Hgb 15.9 g/dL (11.7-16.6) 05/23/22 04:45 Hct 48.6 % (42.0-52.0) 05/23/22 04:45 MCV 91.9 fl (80-94) 05/23/22 04:45 MCH 30.1 pg (28.0-34.0) 05/23/22 04:45 MCHC 32.7 g/dL (30.0-36.0) 05/23/22 04:45 RDW 13.0 % (12.1-15.1) 05/23/22 04:45 Plt Count 167 10^3/cmm (130-400) 05/23/22 04:45 MPV 9.7 fL (7.4-10.4) 05/23/22 04:45 Neut % (Auto) 63.3 % 05/23/22 04:45 Lymph % (Auto) 26.5 % 05/23/22 04:45 [place] % (Auto) 5.4 % 05/23/22 04:45 Eos % (Auto) 3.4 % 05/23/22 04:45 Baso % (Auto) 1.0 % 05/23/22 04:45 Neut # (Auto) 3.16 10^3/uL (1.8-7.7) 05/23/22 04:45 Lymph # (Auto) 1.3 10^3/uL (0.8-4.8) 05/23/22 04:45 [place] # (Auto) 0.3 10^3/uL (0.2-0.9) 05/23/22 04:45 Eos # (Auto) 0.2 10^3/uL (0.0-0.8) 05/23/22 04:45 Baso # (Auto) 0.1 10^3/uL (0.0-0.1) 05/23/22 04:45 Nucleated RBC % (auto) 0 % 05/23/22 04:45 Nucleated RBCs # 0.0 /100WBC 05/23/22 04:45 Specimen Type Arterial 05/23/22 05:03 Sample Site Radial, right 05/23/22 05:03 Kevin Test Pos 05/23/22 05:03 A-a O2 Gradient 1.5 mmHg (5-10) L 05/23/22 05:03 Hematocrit 51.8 % (42-52) 05/23/22 05:03 Hgb O2 Saturation 95.3 % (95-100) 05/23/22 05:03 Carboxyhemoglobin 1.3 %THgb (0.4-20.1) 05/23/22 05:03 Methemoglobin 0.6 % (0.4-1.5) 05/23/22 05:03 Total Hemoglobin 16.9 g/dL (14-18) 05/23/22 05:03 O2 Delivery Device None 05/23/22 05:03 FiO2 21.0 % 05/23/22 05:03 Fusing Line Inspector ID [email or web address] 05/23/22 05:03 Sodium 136 mmol/L (136-145) 05/23/22 04:45 Potassium 4.3 mmol/L (3.5-5.1) 05/23/22 04:45 Chloride 101 mmol/L (98-107) 05/23/22 04:45 Carbon Dioxide 27 mmol/L (22-29) 05/23/22 04:45 Anion Gap 12.3 (5-19) 05/23/22 04:45 BUN 20 mg/dL (6-20) 05/23/22 04:45 Creatinine 0.9 mg/dL (0.7-1.2) 05/23/22 04:45 GFR Calculation 88.6 mL/min (90-130) L 05/23/22 04:45 Glucose 128 mg/dL (65-115) H 05/23/22 04:45 Calculated Osmolality 286 mOsm/kg (285-295) 05/23/22 04:45 Calcium 8.9 mg/dL (8.5-10.5) 05/23/22 04:45 Magnesium 2.1 mg/dL (1.7-2.3) 05/23/22 04:45 Total Bilirubin 0.4 mg/dL (0.15-1.2) 05/23/22 04:45 AST 27 U/L (0-40) 05/23/22 04:45 ALT 49 U/L (0-41) H 05/23/22 04:45 Alkaline Phosphatase 89 U/L (40-130) 05/23/22 04:45 Troponin T Baseline 10 ng/L (0-15) 05/23/22 04:45 Troponin T 120 Minute 8.79 ng/L (0-15) 05/23/22 06:09 Delta Troponin T -1.21 ABS# (0-10) L 05/23/22 06:09 NT-Pro-B Natriuret Pep 51 pg/mL (0-125) 05/23/22 04:45 Total Protein 6.4 g/dL (6.6-8.7) L 05/23/22 04:45 Albumin 3.7 g/dL (3.5-5.2) 05/23/22 04:45 Globulin 2.7 g/dL (1.3-4.6) 05/23/22 04:45 Discharge Plan Discharge Patient Disposition: Home Clinical Impression: Vertigo, Hypertension Condition: Stable Prescriptions: No Action lisinopril 20 mg tablet 20 mg PO DAILY Discharge Orders: Discharge ED (Routine); Ordered 05/23/22 Ordered By: Carol Ann Boo Referrals: Cameron Campbell MD [Primary Care Provider] - Discharge Diet: Usual diet Discharge Activity: Increase activity as tolerated Patient Instructions: Opioid Safety, Pain Management Activity Restrictions/Additional Instructions: Use caution with any activity where an episode of dizziness could cause injury to yourself or those around you - including driving, climbing ladders, using power tools. Return to the ED if new or worse symptoms. Follow up with Dr. Campbell to discuss further testing and treatment. Discuss need for evaluation of the blood vessels in your neck for potential blockage as a cause of your dizziness as we did not get the MRI/MRA today. Coding Level of Care Code ED Fitness Assistant for Chg Fwd Exam Comprehensive
[2022-05-23] MEDS: meclizine 25 mg tablet PO (04:49)
[2022-05-23] MEDS: ondansetron 2 mg/ML SDV 2 mL 4 MG IVP ×2 (04:49→05:54)
[2022-05-23] MEDS: LORazepam 2 mg/mL INJ 1 mL 1 MG IVP (04:49)
[2022-05-23 04:51] LABS: Basophils # 0.1 10^3/uL (0.0-0.1); Eosinophils # 0.2 10^3/uL (0.0-0.8); Eosinophils % 3.4 %; Hematocrit 48.6 % (42.0-52.0); Hemoglobin 15.9 g/dL (11.7-16.6); Lymphocytes # 1.3 10^3/uL (0.8-4.8); Lymphocytes % 26.5 %; Mean Corpuscular HGB Conc 32.7 g/dL (30.0-36.0); Mean Corpuscular Hemoglobin 30.1 pg (28.0-34.0); Mean Corpuscular Volume 91.9 fl (80-94); Mean Platelet Volume 9.7 fL (7.4-10.4); Monocytes # 0.3 10^3/uL (0.2-0.9); Monocytes % 5.4 %; Neutrophils # 3.16 10^3/uL (1.8-7.7); Neutrophils % 63.3 %; Nucleated Red Blood Cells % 0 %; Platelet Count 167 10^3/cmm (130-400); Red Blood Count 5.29 10^6/uL (4.1-5.3)
[2022-05-23 05:10] LABS: Troponin(5th) Baseline 10 ng/L (0-15)
[2022-05-23 05:13] LABS: Alanine Aminotransferase 49 U/L (0-41); Albumin Level 3.7 g/dL (3.5-5.2); Alkaline Phosphatase 89 U/L (40-130); Anion Gap 12.3 (5-19); Aspartate Amino Transferase 27 U/L (0-40); Blood Urea Nitrogen 20 mg/dL (6-20); Calcium 8.9 mg/dL (8.5-10.5); Carbon Dioxide 27 mmol/L (22-29); Chloride 101 mmol/L (98-107); Creatinine Clr Calc Pharmacy 140.6876; Globulin 2.7 g/dL (1.3-4.6); Glomerular Filtration Rate 88.6 mL/min (90-130); Glucose 128 mg/dL (65-115); Magnesium 2.1 mg/dL (1.7-2.3); Osmolality Calculated 286 mOsm/kg (285-295); Potassium 4.3 mmol/L (3.5-5.1); Sodium 136 mmol/L (136-145); Total Bilirubin 0.4 mg/dL (0.15-1.2); Total Protein 6.4 g/dL (6.6-8.7)
[2022-05-23 05:14] LABS: Alveolar-Arterial Oxygen Gradi 1.5 mmHg (5-10); Arterial Blood Gas Hematocrit 51.8 % (42-52); Blood Gas Allen Test Pos; Blood Gas Sample Type Arterial; Carboxyhemoglobin 1.3 %THgb (0.4-20.1); HGB O2 Sat 95.3 % (95-100); Methemoglobin 0.6 % (0.4-1.5); Total Hemoglobin 16.9 g/dL (14-18)
[2022-05-23 05:15] LABS: Blood Gas Sample Site Radial, right
[2022-05-23 05:33] LABS: NT Pro B Type Natriuretic Pept 51 pg/mL (0-125)
[2022-05-23 05:50] VITALS: BP 133/85; PULSE 67; RESP 16; O2SAT 98
[2022-05-23 06:23] VITALS: BP 168/104; PULSE 63; RESP 12; O2SAT 96
[2022-05-23 06:51] LABS: Troponin 5 2HR 8.79 ng/L (0-15)
[2022-05-23 07:25] VITALS: BP 146/100; PULSE 72; RESP 16; O2SAT 97
[2022-05-23 07:28] LABS: Troponin 5 2HR Delta -1.21 ABS# (0-10)
--- NOTE | 2022-05-23 07:59 | PC.NURSE ---
PT STATED I DO NOT WANT AN MRI.
[2022-05-23 08:19] VITALS: BP 143/92; PULSE 61; RESP 16; O2SAT 97
[2022-05-23 08:32] VITALS: BP 143/92; PULSE 66; RESP 16; O2SAT 97
--- NOTE | 2022-05-23 10:22 | ECG_ITS ---
[facility] Test Date: 2022-05-23 Pat Name: Lee Crawford Department: Room: Gender: Male Core Fitter: : 1970 Requested By: Chino Rashid Order Number: [id number] Hanna MD: Antonio Bolaños M.D. Measurements Intervals [place] Rate: 73 P: 42 NE: 144 QRS: 54 QRSD: 73 T: 89 QT: 386 QTc: 426 Interpretive Statements SINUS RHYTHM NONSPECIFIC T-WAVE ABNORMALITY Compared to ECG 05/23/2022 04:17:15 No significant changes Electronically Signed On 05-23-2022 11:32:37 COPYING MACHINE REPAIRER by Antonio Bolaños M.D. [id number]
== END 2022-05-23 08:34 | disposition home or self-care (01) ==
PROVIDERS: Emergency Medicine; Emergency Provider Emergency Medicine; PCP Family Medicine
DX: R42 Dizziness and giddiness (principal); I10 Essential (primary) hypertension; F17.220 Nicotine dependence, chewing tobacco, uncomplicated
CPT/HCPCS: 36415; 36600; 70450; 71045; 80053; 82810; 83735; 83880; 84484; 85025; 93005; 96374; 96375; 96376; 99285; J2060; J2405; J8597

== ENCOUNTER 2023-01-21 11:38 | Outpatient (CLI) | payer OTHER, SELFPAY ==
[2023-01-21 12:07] VITALS: BMI 50.8
--- NOTE | 2023-01-21 12:07 | ECG_ITS ---
[facility] Test Date: 2023-01-21 Pat Name: Lee Crawford Department: Room: Gender: Male Fitness Plan Coordinator: Jo Campos : 1970 Requested By: Cameron Zhang Order Number: [id number] Hanna MD: Bre Coy M.D. Interpretive Statements NAME OF STUDY: TREADMILL STRESS TEST INDICATION: Exertional shortness of Breath Baseline blood pressure of 130/86 mm Hg, heart rate 78 beats per minute and oxygen saturation of 95%. EKG showed sinus rhythm, normal axis with normal ST-Ts. The patient exercised for 3 minutes and 54 seconds on a standard Bin[place] protocol. Patient attained a maximum heart rate of 156 beats per minute(93% of the maximum predicted heart rate) with a blood pressure at the peak exercise of 196/114 mm Hg and saturation of 94%. The EKG at the peak exercise revealed sinus tachycardia with no significant ST-T wave changes. Patient did not have any chest pain or any significant arrhythmis with the exercise During the recovery phase, there were no new changes. Blood pressure at the end of the recovery phase was 152/100 mm Hg with a heart rate of 90 beats per minute and saturation of 96%. CONCLUSION: 1. Normal EKG response to treadmill exercise 2. No exercise-induced chest pain or cardiac arrhythmia 3. Decreased exercise tolerance for age, attained a maximum of 7 METs. He exercised for 3 minutes and 54 seconds. 4. Baseline hypertension with normal response to exercise. Electronically Signed On 01-28-2023 13:39:48 CDT by Bre Coy M.D. [id number]
[2023-01-21 12:45] VITALS: BP 152/100; PULSE 88
== END 2023-01-21 11:39 | disposition home or self-care (01) ==
LOC: CDL 11:38
PROVIDERS: PCP Family Medicine; Visit Provider Family Medicine
DX: R06.00 Dyspnea, unspecified (principal)
CPT/HCPCS: 93017

== ENCOUNTER 2024-10-09 14:50 | Emergency (ER) | payer OTHER, SELFPAY ==
[2024-10-09 14:58] VITALS: BP 146/96; PULSE 76; RESP 16; TEMP 36.4; O2SAT 97
[2024-10-09 16:07] LABS: Basophils # 0.1 10^3/uL (0.0-0.1); Basophils % 0.9 %; Eosinophils # 0.1 10^3/uL (0.0-0.8); Eosinophils % 1.6 %; Hematocrit 50.1 % (37-53); Lymphocytes # 1.2 10^3/uL (0.8-4.8); Lymphocytes % 18.2 %; Mean Corpuscular HGB Conc 33.1 g/dL (30-55); Mean Corpuscular Hemoglobin 30.9 pg (27-33); Mean Corpuscular Volume 93.1 fl (82-101); Mean Platelet Volume 9.2 fL (7.4-10.4); Monocytes # 0.3 10^3/uL (0.2-0.9); Monocytes % 4.5 %; Neutrophils # 4.99 10^3/uL (1.8-7.7); Neutrophils % 74.4 %; Nucleated Red Blood Cells % 0 %; Platelet Count 203 10^3/cmm (157-399); Red Blood Count 5.38 10^6/uL (3.85-5.65); Red Cell Distribution Width 12.9 % (12.1-15.1); White Blood Count 6.71 10^3/uL (3.29-11.43)
[2024-10-09 16:28] LABS: Alanine Aminotransferase 38 U/L (0-41); Albumin Level 3.9 g/dL (3.5-5.2); Alkaline Phosphatase 96 U/L (40-130); Anion Gap 15.2 (5-19); Aspartate Amino Transferase 23 U/L (0-40); Blood Urea Nitrogen 19 mg/dL (6-20); Calcium 9.2 mg/dL (8.5-10.5); Carbon Dioxide 23 mmol/L (22-29); Chloride 102 mmol/L (98-107); Creatinine Clr Calc Pharmacy 122.3023; Glomerular Filtration Rate 77.6 mL/min (90-130); Glucose 132 mg/dL (65-115); Lipase 42 U/L (13-60); Osmolality Calculated 286 mOsm/kg (285-295); Potassium 4.2 mmol/L (3.5-5.1); Sodium 136 mmol/L (136-145); Total Bilirubin 0.4 mg/dL (0.15-1.2); Total Protein 6.9 g/dL (6.6-8.7)
--- NOTE | 2024-10-09 18:19 | ED_ITS ---
HPI - Dizziness 2 General: Chief Complaint: Dizziness Stated Complaint: dizzy, vomitting, weakness Time Seen by Provider: 10/09/24 18:07 History of Present Illness: HPI Narrative: 54-year-old man with a history of obesit y and hypertension who presents the emergency room with dizziness. He says he was working on a car and when he rolled over and moved a certain direction he suddenly became extremely dizzy. He says the world was spinning. He said he became incredibly nauseous. He says he has had vertigo in the past but it was nothing like this. Says this was very severe. Symptoms have resolved at this point but he still has a mild headache. Vital signs are normal. No focal motor deficits. No altered mental status. No fevers. When I discussed this with him and offered a CT scan he says he just wants to go home that he feels better now. Related Data Home Medications ?Medication ?Instructions ?Recorded ?Confirmed lisinopril 20 mg tablet 20 mg PO DAILY 03/24/2010/24 Previous Rx's ?Medication ?Instructions ?Recorded meclizine 25 mg tablet 25 mg PO QID PRN dizziness # 20 tabs 10/09/24 ondansetron 4 mg disintegrating 4 mg PO Q8H PRN nausea and 10/09/24 tablet vomiting #10 tabs Allergies Allergy/AdvReac Type Severity Reaction Status Date / Time acetaminophen (From Percocet) Allergy Unknown Unknown Verified 11/21/20 09:08 oxycodone (From Percocet) Allergy Unknown Unknown Verified 11/21/20 09:08 propoxyphene (From Allergy Unknown Unknown Verified 11/21/20 09:08 Darvocet-N) tramadol Allergy Unknown Unknown Verified 11/21/20 09:08 Review of Systems 2 Narrative: Constitutional symptoms: Negative except as documented in HPI. Skin symptoms: Negative except as documented in HPI. Eye symptoms: Negative except as documented in HPI. ENMT symptoms: Negative except as documented in HPI. Respiratory symptoms: Negative except as documented in HPI. Cardiovascular symptoms: Negative except as documented in HPI. Gastrointestinal symptoms: Negative except as documented in HPI. Genitourinary symptoms: Negative except as documented in HPI. Musculoskeletal symptoms: Negative except as documented in HPI. Neurologic symptoms: Negative except as documented in HPI. Psychiatric symptoms: Negative except as documented in HPI. Endocrine symptoms: Negative except as documented in HPI. PFSH ED 2 PFSH: Medical History COVID-19 10/14 Dyspnea on exertion Hypercholesterolemia Hypertension Obstructive sleep apnea Surgical History H/O colonoscopy Removal of 6 precancerous polyps Family History Other Cancer Hypertension Stroke Social History Smoking and tobacco/nicotine status: current every day tobacco/nicotine user smokeless tobacco Alcohol intake: current Alcohol intake frequency: holidays/special occasions only Substance/Drug Use: never Household members: spouse Housing: House Physical Exam 2 Narrative: EXAM NARRATIVE: General: Alert, no acute distress. Skin: Warm, dry. Head: Normocephalic, atraumatic. Neck: Supple, trachea midline. Eye: Extraocular movements are intact. Ears, nose, mouth and throat: mucosa moist. Cardiovascular: Regular, Normal peripheral perfusion. Respiratory: Lungs are clear to auscultation, respirations are non-labored, breath sounds are equal, Symmetrical chest wall expansion. Gastrointestinal: Soft, Nontender, Non distended Musculoskeletal: Normal ROM, no deformity. Neurological: Alert and oriented, No focal neurological deficit observed. No nystagmus Psychiatric: Cooperative, appropriate mood & affect. Course 2 Vital Signs: Vital signs: Vital Signs Temperature 97.6 F 10/09/24 14:58 Pulse Rate 76 10/09/24 14:58 Respiratory Rate 16 10/09/24 14:58 Blood Pressure 146/96 10/09/24 14:58 Pulse Oximetry 97 10/09/24 14:58 Oxygen Delivery Me thod Room Air 10/09/24 14:58 MDM - Dizziness Medical Decision Making Medical decision making: Differential diagnosis including but not limited to and based on the above HPI, review of systems and physical exam: for patient with complaint of dizziness: stroke, hypotension, hypertension, infection, vertigo, orthostasis Orders placed to evaluate differential diagnosis based on the above differential, HPI and physical exam Lab Review: Laboratory results were reviewed and interpreted by myself the emergency room physician. No leukocytosis. No anemia. No renal failure. I reviewed the patient's medical record. Assessment and plan: Benign positional vertigo - Discharged home - Discussed plan with patient. Answered any questions. - Evaluation and treatment of this problem were appropriate in the emergency setting. Lab Data 10/09/24 15:55 10/09/24 15:55 Laboratory Results WBC 6.71 10^3/uL (3.29-11.43) 10/09/24 15:55 RBC 5.38 10^6/uL (3.85-5.65) 10/09/24 15:55 Hgb 16.60 g/dL (11.27-16.99) 10/09/24 15:55 Hct 50.1 % (37-53) 10/09/24 15:55 MCV 93.1 fl (82-101) 10/09/24 15:55 MCH 30.9 pg (27-33) 10/09/24 15:55 MCHC 33.1 g/dL (30-55) 10/09/24 15:55 RDW 12.9 % (12.1-15.1) 10/09/24 15:55 Plt Count 203 10^3/cmm (157-399) 10/09/24 15:55 MPV 9.2 fL (7.4-10.4) 10/09/24 15:55 Neut % (Auto) 74.4 % 10/09/24 15:55 Lymph % (Auto) 18.2 % 10/09/24 15:55 Maury % (Auto) 4.5 % 10/09/24 15:55 Eos % (Auto) 1.6 % 10/09/24 15:55 Baso % (Auto) 0.9 % 10/09/24 15:55 Neut # (Auto) 4.99 10^3/uL (1.8-7.7) 10/09/24 15:55 Lymph # (Auto) 1.2 10^3/uL (0.8-4.8) 10/09/24 15:55 Maury # (Auto) 0.3 10^3/uL (0.2-0.9) 10/09/24 15:55 Eos # (Auto) 0.1 10^3/uL (0.0-0.8) 10/09/24 15:55 Baso # (Auto) 0.1 10^3/uL (0.0-0.1) 10/09/24 15:55 Nucleated RBC % (auto) 0 % 10/09/24 15:55 Nucleated RBCs # 0.0 /100WBC 10/09/24 15:55 Sodium 136 mmol/L (136-145) 10/09/24 15:55 Potassium 4.2 mmol/L (3.5-5.1) 10/09/24 15:55 Chloride 102 mmol/L (98-107) 10/09/24 15:55 Carbon Dioxide 23 mmol/L (22-29) 10/09/24 15:55 Anion Gap 15.2 (5-19) 10/09/24 15:55 BUN 19 mg/dL (6-20) 10/09/24 15:55 Creatinine 1.0 mg/dL (0.7-1.2) 10/09/24 15:55 GFR Calculation 77.6 mL/min (90-130) L 10/09/24 15:55 Glucose 132 mg/dL (65-115) H 10/09/24 15:55 Calculated Osmolality 286 mOsm/kg (285-295) 10/09/24 15:55 Calcium 9.2 mg/dL (8.5-10.5) 10/09/24 15:55 Total Bilirubin 0.4 mg/dL (0.15-1.2) 10/09/24 15:55 AST 23 U/L (0-40) 10/09/24 15:55 ALT 38 U/L (0-41) 10/09/24 15:55 Alkaline Phosphatase 96 U/L (40-130) 10/09/24 15:55 Total Protein 6.9 g/dL (6.6-8.7) 10/09/24 15:55 Albumin 3.9 g/dL (3.5-5.2) 10/09/24 15:55 Globulin 3.0 g/dL (1.3-4.6) 10/09/24 15:55 Lipase 42 U/L (13-60) 10/09/24 15:55 No radiology studies performed this visit Discharge Plan Discharge Patient Disposition: Home Clinical Impression: Benign paroxysmal positional vertigo Condition: Stable Prescriptions: New meclizine 25 mg tablet 25 mg PO QID PRN (Reason: dizziness) Qty: 20 0RF ondansetron 4 mg tablet,disintegrating 4 mg PO Q8H PRN (Reason: nausea and vomiting) Qty: 10 0RF No Action lisinopril 20 mg tablet 20 mg PO DAILY Discharge Orders: Discharge ED (Routine); Ordered 10/09/24 Ordered By: Alena Malone Referrals: Cameron Campbell MD [Primary Care Provider, Family Practice] Discharge Diet: Usual diet Discharge Activity: Increase activity as tolerated Patient Instructions: Benign Paroxysmal Positional Vertigo (ED), Opioid Safety, Pain Management Activity Restrictions/Additional Instructions: Thank you for choosing [facility] for your healthcare needs today. You have been screened and evaluated and felt safe for discharge. Health conditions do change or evolve sometimes and as such it is important that you follow up with your Primary Doctor to be re checked, 3-5 days is a general good time frame for follow up. You are always welcome to return to the ED for re assessment if your symptoms are worsening or you have new concerns Print Language: Czech Coding Level of Care Code ED Pack Train Driver for George Macias
[2024-10-09 18:30] VITALS: BP 139/83; PULSE 77; O2SAT 97
== END 2024-10-09 18:31 | disposition home or self-care (01) ==
PROVIDERS: Emergency Medicine; Emergency Provider Emergency Medicine; PCP Family Medicine
DX: R42 Dizziness and giddiness (principal); F17.290 Nicotine dependence, other tobacco product, uncomplicated; I10 Essential (primary) hypertension
CPT/HCPCS: 36415; 80053; 83690; 85025; 99283